=== PATIENT | male | born 1965 | race Caucasian/White ===

== ENCOUNTER 2017-11-27 14:45 | Emergency (ER) | payer BC ==
[~2017-11-27] VITALS: Ht 193 cm; Wt 115.7 kg
[~2017-11-27 14:45] MED LIST: ACET325 PO; ADVIL100 MG PO; ALPR1 PO; AMPDEX10CR PO; ARIP10 PO; ASPI81CH PO; ATEN25 PO; BUPR150ER PO; CYCL10 PO; Catapres0.1 MG PO; DESV50 PO; DULO60; DULO60 PO; ESZO3 PO; FISH1000 PO; HYDACE10B PO; HYDACE5 PO; HYDMOR2 PO; IBUP800 PO; METCAR500 PO; METH10 PO; MULVITMIND PO; Norco 5-325 Ta1 EACH PO; OXYACE5T PO; OXYC20ER PO; Prinivil10 MG PO; TRAM50 PO; VITS/SUPPS; Valium5 MG PO; ZOLP5 PO
[2017-11-27 15:41] LABS: BASOPHILS ABSOLUTE AUTO 0.03 K/mm3 (0.00-0.23); BASOPHILS PERCENT AUTO 0 % (0-2); EOSINOPHILS ABSOLUTE AUTO 0.05 K/mm3 (0.00-0.68); EOSINOPHILS PERCENT AUTO 1 % (0-6); Hematocrit 48.1 % (37.0-53.0); IMMATURE GRAN ABSOLUTE AUTO 0.04 K/mm3 (0.00-0.10); IMMATURE GRAN PERCENT AUTO 0 % (0-1); LYMPHOCYTES ABSOLUTE AUTO 2.68 K/mm3 (0.84-5.20); LYMPHOCYTES PERCENT AUTO 25 % (21-46); MONOCYTES ABSOLUTE AUTO 0.73 K/mm3 (0.16-1.47); MONOCYTES PERCENT AUTO 7 % (4-13); Mean Corpuscular HGB 31.8 pg (26.0-34.0); Mean Corpuscular HGB Conc 35.3 g/dL (31.5-36.5); Mean Corpuscular Volume 90 fL (80-100); Mean Platelet Volume 10.1 fL (9.1-12.4); NEUTROPHILS ABSOLUTE AUTO 7.39 K/mm3 (1.96-9.15); NEUTROPHILS PERCENT AUTO 68 % (41-73); Platelet Count 318 K/mm3 (150-400); RDW Coefficient Variation 11.9 % (11.7-14.2); RDW Standard Deviation 38.6 fL (35.1-46.3); Red Blood Cell Count 5.35 M/mm3 (4.30-5.90); White Blood Cell Count 10.92 K/mm3 (4.00-11.30)
[2017-11-27 15:56] LABS: Alanine Aminotransfer (ALT/SGP 30 U/L (12-78); Albumin/Globulin Ratio 1.5 (0.8-1.8); Alk Phos 65 U/L (50-136); Anion Gap 11 mmol/L (6-16); Aspartate Aminotrans (AST/SGOT 15 U/L (12-37); Bilirubin, Total 0.7 mg/dL (0.1-1.0); Blood Urea Nitrogen 18 mg/dL (8-24); CO2, Blood 22 mmol/L (21-32); Calcium, Blood 9.8 mg/dL (8.5-10.1); Chloride, Blood 103 mmol/L (98-108); Globulin, Blood 3.3 g/dL (2.2-4.0); Glomerular Filtration Rate >60 (60-); Glucose, Blood 113 mg/dL (70-99); Potassium, Blood 4.1 mmol/L (3.5-5.5); Sodium, Blood 136 mmol/L (136-145); Total Protein, Blood 8.3 g/dL (6.4-8.2)
[2017-11-27 16:12] LABS: Influenza A Negative (NEGATIVE); Influenza B Negative (NEGATIVE)
[2017-11-27] MEDS ORDERED: LORA2 PO (16:47)
== END 2017-11-27 17:02 | disposition home or self-care (01) ==
LOC: ER 14:45
PROVIDERS: Emergency Medicine
DX: R11.2 Nausea with vomiting, unspecified (principal); G44.40 Drug-induced headache, not elsewhere classified, not intractable; T43.595A Adverse effect of other antipsychotics and neuroleptics, initial encounter; F32.9 Major depressive disorder, single episode, unspecified
CPT/HCPCS: 36415; 80053; 85025; 87804; 93005; 93010; 96361; 96374; 99283; J2060; J7030

== ENCOUNTER 2021-04-11 12:10 | Emergency (ER) | payer OTHER ==
[~2021-04-11] VITALS: Ht 193 cm; Wt 124.7 kg
[~2021-04-11 12:10] MED LIST changes: +LORA2 PO
[2021-04-11 13:08] LABS: Hematocrit 49.3 % (37.0-53.0); Hemoglobin 17.8 g/dL (13.5-17.5); Mean Corpuscular HGB 32.8 pg (26.0-34.0); Mean Corpuscular HGB Conc 36.1 g/dL (31.5-36.5); Mean Corpuscular Volume 91 fL (80-100); Mean Platelet Volume 10.5 fL (9.1-12.4); Platelet Count 350 K/mm3 (150-400); RDW Standard Deviation 42.7 fL (35.1-46.3); Red Blood Cell Count 5.42 M/mm3 (4.30-5.90); White Blood Cell Count 14.88 K/mm3 (4.00-11.30)
[2021-04-11 13:27] LABS: Alanine Aminotransfer (ALT/SGP 79 U/L (12-78); Albumin, Blood 4.3 g/dL (3.4-5.0); Albumin/Globulin Ratio 1.1 (0.8-1.8); Alk Phos 76 U/L (50-136); Anion Gap 7 mmol/L (6-16); Aspartate Aminotrans (AST/SGOT 23 U/L (12-37); Bilirubin, Total 0.5 mg/dL (0.1-1.0); Blood Urea Nitrogen 23 mg/dL (8-24); Bun/Creatinine Ratio 18.3 (12.0-20.0); CO2, Blood 22 mmol/L (21-32); Calcium, Blood 9.9 mg/dL (8.5-10.1); Chloride, Blood 109 mmol/L (98-108); Creatinine, Blood 1.26 mg/dL (0.60-1.20); Globulin, Blood 3.8 g/dL (2.2-4.0); Glomerular Filtration Rate >60 (60-); Glucose, Blood 95 mg/dL (70-99); Potassium, Blood 4.5 mmol/L (3.5-5.5); Sodium, Blood 138 mmol/L (136-145); Total Protein, Blood 8.1 g/dL (6.4-8.2)
[2021-04-11 13:32] LABS: BASOPHILS ABSOLUTE MAN 0.14 K/mm3 (0.00-0.23); BASOPHILS PERCENT MAN 1 % (0-2); EOSINOPHILS ABSOLUTE MAN 0.14 K/mm3 (0.00-0.68); EOSINOPHILS PERCENT MAN 1 % (0-6); LYMPHOCYTES ABSOLUTE MAN 5.65 K/mm3 (0.84-5.20); LYMPHOCYTES PERCENT MAN 38 % (21-46); MONOCYTES ABSOLUTE MAN 1.19 K/mm3 (0.16-1.47); MONOCYTES PERCENT MAN 8 % (4-13); NEUTROPHILS ABSOLUTE MAN 7.73 K/mm3 (1.96-9.15); SEG NEUTROPHILS PERCENT MAN 52 % (41-73); TOTAL CELLS COUNTED 100
[2021-04-11] MEDS ORDERED: ALBU90OI61 INH (14:24)
== END 2021-04-11 15:02 | disposition home or self-care (01) ==
LOC: ER 12:10
PROVIDERS: Physician Assistant
DX: R06.02 Shortness of breath (principal); Z79.899 Other long term (current) drug therapy; Z79.82 Long term (current) use of aspirin; Z88.8 Allergy status to other drugs, medicaments and biological substances
CPT/HCPCS: 36415; 71046; 80053; 85025; 99284-25

== ENCOUNTER 2021-12-16 12:01 | Emergency (ER) | payer OTHER ==
[~2021-12-16] VITALS: Ht 193 cm; Wt 129.3 kg
[~2021-12-16 12:01] MED LIST changes: +ALBU90OI61 INH
[2021-12-16] MEDS ORDERED: ROSU5 (12:38)
[2021-12-16 12:59] LABS: BASOPHILS ABSOLUTE AUTO 0.01 K/mm3 (0.00-0.23); BASOPHILS PERCENT AUTO 0 % (0-2); EOSINOPHILS ABSOLUTE AUTO 0.01 K/mm3 (0.00-0.68); EOSINOPHILS PERCENT AUTO 0 % (0-6); Hematocrit 45.1 % (37.0-53.0); Hemoglobin 16.3 g/dL (13.5-17.5); IMMATURE GRAN ABSOLUTE AUTO 0.01 K/mm3 (0.00-0.10); IMMATURE GRAN PERCENT AUTO 0 % (0-1); LYMPHOCYTES ABSOLUTE AUTO 2.76 K/mm3 (0.84-5.20); LYMPHOCYTES PERCENT AUTO 34 % (21-46); MONOCYTES ABSOLUTE AUTO 0.57 K/mm3 (0.16-1.47); MONOCYTES PERCENT AUTO 7 % (4-13); Mean Corpuscular HGB Conc 36.1 g/dL (31.5-36.5); Mean Corpuscular Volume 88 fL (80-100); Mean Platelet Volume 10.5 fL (9.1-12.4); NEUTROPHILS ABSOLUTE AUTO 4.69 K/mm3 (1.96-9.15); NEUTROPHILS PERCENT AUTO 58 % (41-73); Platelet Count 270 K/mm3 (150-400); RDW Coefficient Variation 12.4 % (11.7-14.2); RDW Standard Deviation 40.7 fL (35.1-46.3); White Blood Cell Count 8.05 K/mm3 (4.00-11.30)
[2021-12-16 13:25] LABS: Alanine Aminotransfer (ALT/SGP 30 U/L (12-78); Albumin, Blood 3.4 g/dL (3.4-5.0); Albumin/Globulin Ratio 0.7 (0.8-1.8); Alk Phos 69 U/L (50-136); Anion Gap 11 mmol/L (6-16); Aspartate Aminotrans (AST/SGOT 28 U/L (12-37); Bilirubin, Total 0.5 mg/dL (0.1-1.0); Blood Urea Nitrogen 14 mg/dL (8-24); Bun/Creatinine Ratio 15.1 (12.0-20.0); CO2, Blood 22 mmol/L (21-32); Calcium, Blood 8.8 mg/dL (8.5-10.1); Chloride, Blood 104 mmol/L (98-108); Creatinine, Blood 0.93 mg/dL (0.60-1.20); Globulin, Blood 4.6 g/dL (2.2-4.0); Glomerular Filtration Rate >60 (60-); Glucose, Blood 125 mg/dL (70-99); Potassium, Blood 3.5 mmol/L (3.5-5.5); Sodium, Blood 137 mmol/L (136-145)
[2021-12-16] MEDS ORDERED: ONDA4ODT MM (15:13)
[2021-12-16] MEDS ORDERED: BENZ100A PO (15:13)
== END 2021-12-16 15:45 | disposition home or self-care (01) ==
LOC: ER 12:01
PROVIDERS: Physician Assistant
DX: U07.1 COVID-19 (principal); J12.82 Pneumonia due to coronavirus disease 2019
CPT/HCPCS: 36415; 71045; 80053; 83690; 84145; 84484; 85025; 93005; 93010; 96374; 96375; 96376; 99284-25; J1885; J2405; M0247

== ENCOUNTER 2021-12-26 08:15 | Emergency (ER) | payer OTHER ==
[~2021-12-26] VITALS: Ht 188 cm; Wt 129.3 kg
[~2021-12-26 08:15] MED LIST changes: +BENZ100A PO; +ONDA4ODT MM; +ROSU5
[2021-12-26 08:56] LABS: BASOPHILS ABSOLUTE AUTO 0.03 K/mm3 (0.00-0.23); BASOPHILS PERCENT AUTO 0 % (0-2); EOSINOPHILS ABSOLUTE AUTO 0.11 K/mm3 (0.00-0.68); EOSINOPHILS PERCENT AUTO 1 % (0-6); Hematocrit 40.6 % (37.0-53.0); Hemoglobin 14.5 g/dL (13.5-17.5); IMMATURE GRAN ABSOLUTE AUTO 0.06 K/mm3 (0.00-0.10); IMMATURE GRAN PERCENT AUTO 1 % (0-1); LYMPHOCYTES ABSOLUTE AUTO 3.08 K/mm3 (0.84-5.20); LYMPHOCYTES PERCENT AUTO 28 % (21-46); MONOCYTES ABSOLUTE AUTO 0.75 K/mm3 (0.16-1.47); MONOCYTES PERCENT AUTO 7 % (4-13); Mean Corpuscular HGB 31.7 pg (26.0-34.0); Mean Corpuscular HGB Conc 35.7 g/dL (31.5-36.5); Mean Corpuscular Volume 89 fL (80-100); Mean Platelet Volume 9.8 fL (9.1-12.4); NEUTROPHILS ABSOLUTE AUTO 7.14 K/mm3 (1.96-9.15); NEUTROPHILS PERCENT AUTO 64 % (41-73); Platelet Count 350 K/mm3 (150-400); RDW Coefficient Variation 12.2 % (11.7-14.2); RDW Standard Deviation 39.3 fL (35.1-46.3); Red Blood Cell Count 4.57 M/mm3 (4.30-5.90); White Blood Cell Count 11.17 K/mm3 (4.00-11.30)
[2021-12-26 09:22] LABS: Alanine Aminotransfer (ALT/SGP 33 U/L (12-78); Albumin, Blood 3.3 g/dL (3.4-5.0); Albumin/Globulin Ratio 0.9 (0.8-1.8); Alk Phos 66 U/L (50-136); Anion Gap 7 mmol/L (6-16); Aspartate Aminotrans (AST/SGOT 19 U/L (12-37); Bilirubin, Total 0.6 mg/dL (0.1-1.0); Blood Urea Nitrogen 20 mg/dL (8-24); Bun/Creatinine Ratio 21.9 (12.0-20.0); CO2, Blood 26 mmol/L (21-32); Calcium, Blood 8.8 mg/dL (8.5-10.1); Chloride, Blood 110 mmol/L (98-108); Creatinine, Blood 0.91 mg/dL (0.60-1.20); Globulin, Blood 3.5 g/dL (2.2-4.0); Glomerular Filtration Rate >60 (60-); Glucose, Blood 117 mg/dL (70-99); Potassium, Blood 3.9 mmol/L (3.5-5.5); Sodium, Blood 143 mmol/L (136-145); Total Protein, Blood 6.8 g/dL (6.4-8.2)
== END 2021-12-26 12:22 | disposition home or self-care (01) ==
LOC: ER 08:15
PROVIDERS: Physician Assistant
DX: K21.9 Gastro-esophageal reflux disease without esophagitis (principal); Z88.8 Allergy status to other drugs, medicaments and biological substances; Z79.899 Other long term (current) drug therapy; Z79.82 Long term (current) use of aspirin
CPT/HCPCS: 36415; 71045; 80053; 84484; 85025; 85379; 93005; 93010; 96374; 96375; 99285-25; A9270; J1885; J2405

== ENCOUNTER 2022-05-04 12:11 | Emergency (ER) | payer OTHER ==
[~2022-05-04] VITALS: Ht 193 cm; Wt 127.0 kg
[2022-05-04 13:44] LABS: BASOPHILS ABSOLUTE AUTO 0.04 K/mm3 (0.00-0.23); BASOPHILS PERCENT AUTO 0 % (0-2); EOSINOPHILS ABSOLUTE AUTO 0.44 K/mm3 (0.00-0.68); EOSINOPHILS PERCENT AUTO 4 % (0-6); Hematocrit 47.3 % (37.0-53.0); Hemoglobin 16.4 g/dL (13.5-17.5); Mean Corpuscular HGB Conc 34.7 g/dL (31.5-36.5); Mean Corpuscular Volume 92 fL (80-100); Mean Platelet Volume 10.5 fL (9.1-12.4); Platelet Count 373 K/mm3 (150-400); RDW Coefficient Variation 13.2 % (11.7-14.2); RDW Standard Deviation 44.5 fL (35.1-46.3); Red Blood Cell Count 5.13 M/mm3 (4.30-5.90); White Blood Cell Count 12.41 K/mm3 (4.00-11.30)
[2022-05-04 14:05] LABS: IMMATURE GRAN ABSOLUTE AUTO 0.03 K/mm3 (0.00-0.10); IMMATURE GRAN PERCENT AUTO 0 % (0-1); LYMPHOCYTES ABSOLUTE AUTO 5.07 K/mm3 (0.84-5.20); LYMPHOCYTES PERCENT AUTO 41 % (21-46); MONOCYTES ABSOLUTE AUTO 0.96 K/mm3 (0.16-1.47); MONOCYTES PERCENT AUTO 8 % (4-13); NEUTROPHILS ABSOLUTE AUTO 5.87 K/mm3 (1.96-9.15); NEUTROPHILS PERCENT AUTO 47 % (41-73)
[2022-05-04 14:15] LABS: Bilirubin, Total 0.6 mg/dL (0.1-1.0); Bun/Creatinine Ratio 23.9 (12.0-20.0); Calcium, Blood 9.5 mg/dL (8.5-10.1); Creatinine, Blood 1.34 mg/dL (0.60-1.20); Potassium, Blood 4.2 mmol/L (3.5-5.5)
[2022-05-04 17:40] LABS: Source, Urine Clean Catch
[2022-05-04 17:49] LABS: Appearance, Urine Clear (Clear); Bilirubin, Urine Neg (Neg); Blood, Urine Neg (Neg); Color, Urine Yellow (P-Yellow); Glucose Qualitative, Urine Neg (Neg); Ketones, Urine Neg (Neg); Leukocyte Esterase, Urine Neg (Neg); Nitrite, Urine Neg (Neg); Protein, Urine 1+ (Neg); Specific Gravity, Urine 1.025 (1.003-1.022); Urobilinogen, Urine NORM (Normal)
[2022-05-04 19:57] LABS: U Amphetamine Screen DETECTED; U Barbituate Screen Not Detected; U Benzodiazapine Screen DETECTED; U Buprenorphine Screen Not Detected; U Cannabinoids Screen Not Detected; U Cocaine Screen Not Detected; U Methadone Screen Not Detected; U Methamphetamine Screen Not Detected; U Opiates Screen Not Detected; U Oxycodone Screen Not Detected; U Phencyclidine Screen Not Detected; U Propoxyphene Screen Not Detected
== END 2022-05-04 20:31 | disposition home or self-care (01) ==
LOC: ER 12:11
PROVIDERS: Emergency Medicine; Physician Assistant
DX: R47.89 Other speech disturbances (principal); F41.9 Anxiety disorder, unspecified; N28.9 Disorder of kidney and ureter, unspecified; Z88.8 Allergy status to other drugs, medicaments and biological substances; Z79.899 Other long term (current) drug therapy
CPT/HCPCS: 36415; 70450; 71046; 80053; 85025; 93005; 93010; 96374; 99285-25; G0480; J1200

== ENCOUNTER 2022-08-02 14:56 | Emergency (ER) | payer OTHER ==
[~2022-08-02] VITALS: Ht 193 cm; Wt 127.0 kg
[2022-08-02 15:29] LABS: Hematocrit 47.9 % (37.0-53.0); Hemoglobin 16.2 g/dL (13.5-17.5); Mean Corpuscular HGB 30.5 pg (26.0-34.0); Mean Corpuscular HGB Conc 33.8 g/dL (31.5-36.5); Mean Corpuscular Volume 90 fL (80-100); Mean Platelet Volume 10.1 fL (9.1-12.4); Platelet Count 330 K/mm3 (150-400); RDW Coefficient Variation 13.9 % (11.7-14.2); RDW Standard Deviation 45.8 fL (35.1-46.3); Red Blood Cell Count 5.32 M/mm3 (4.30-5.90); White Blood Cell Count 15.84 K/mm3 (4.00-11.30)
[2022-08-02 15:43] LABS: Albumin/Globulin Ratio 1.1 (0.8-1.8); Bilirubin, Total 0.5 mg/dL (0.1-1.0); Bun/Creatinine Ratio 23.1 (12.0-20.0); Calcium, Blood 9.4 mg/dL (8.5-10.1); Creatinine, Blood 1.56 mg/dL (0.60-1.20); Globulin, Blood 3.5 g/dL (2.2-4.0); Potassium, Blood 4.2 mmol/L (3.5-5.5); Total Protein, Blood 7.5 g/dL (6.4-8.2)
[2022-08-02 16:00] LABS: BASOPHILS PERCENT MAN 0 % (0-2); EOSINOPHILS ABSOLUTE MAN 0.63 K/mm3 (0.00-0.68); EOSINOPHILS PERCENT MAN 4 % (0-6); LYMPHOCYTES % ATYPICAL MANUAL 1 % (0-0); LYMPHOCYTES ABSOLUTE MAN 4.91 K/mm3 (0.84-5.20); LYMPHOCYTES PERCENT MAN 30 % (21-46); MONOCYTES PERCENT MAN 7 % (4-13); NEUTROPHILS ABSOLUTE MAN 9.18 K/mm3 (1.96-9.15); SEG NEUTROPHILS PERCENT MAN 58 % (41-73); TOTAL CELLS COUNTED 100
[2022-08-02] MEDS ORDERED: ATEN50 PO (16:30)
[2022-08-02] MEDS ORDERED: LOSARTAN POTASS25 M2 PO (16:31)
[2022-08-02] MEDS ORDERED: TRAM50 PO (16:31)
[2022-08-02] MEDS ORDERED: HYDHCL25 PO (16:31)
[2022-08-02] MEDS ORDERED: PERIDEX15 ML MM (17:02)
[2022-08-02] MEDS ORDERED: AMOCLA875 PO (17:02)
== END 2022-08-02 17:23 | disposition home or self-care (01) ==
LOC: ER 14:56
PROVIDERS: Physician Assistant
DX: L03.211 Cellulitis of face (principal); K12.1 Other forms of stomatitis; Z88.8 Allergy status to other drugs, medicaments and biological substances; Z79.899 Other long term (current) drug therapy
CPT/HCPCS: 36415; 80053; 85025; 99283

== ENCOUNTER 2022-08-29 13:22 | Emergency (ER) | payer OTHER ==
[~2022-08-29] VITALS: Ht 193 cm; Wt 127.0 kg
[~2022-08-29 13:22] MED LIST changes: +AMOCLA875 PO; +ATEN50 PO; +HYDHCL25 PO; +LOSARTAN POTASS25 M2 PO; +PERIDEX15 ML MM
[2022-08-29] MEDS ORDERED: PEPCID40 MG PO (18:21)
[2022-08-29] MEDS ORDERED: PRED20 PO (18:21)
== END 2022-08-29 19:12 | disposition home or self-care (01) ==
LOC: ER 13:22
DX: T78.3XXA Angioneurotic edema, initial encounter (principal); I10 Essential (primary) hypertension; F41.9 Anxiety disorder, unspecified; F32.A Depression, unspecified; Z88.8 Allergy status to other drugs, medicaments and biological substances; Z79.899 Other long term (current) drug therapy; Z79.82 Long term (current) use of aspirin
CPT/HCPCS: J1200; J2930

== ENCOUNTER 2022-08-30 12:31 | Inpatient (IN) | payer OTHER ==
[~2022-08-30] VITALS: Ht 193 cm; Wt 130.0 kg
[~2022-08-30 12:31] MED LIST changes: -AMPDEX10CR PO; -ASPI81CH PO; +Adderall Xr 2020 MG PO; +Aspir 8181 MG PO; +DULO30 PO; -DULO60; -LOSARTAN POTASS25 M2 PO; +PEPCID40 MG PO; +PRED20 PO; -ROSU5; +ROSU5 PO
[2022-08-30 13:58] LABS: Hematocrit 46.5 % (37.0-53.0); Hemoglobin 15.4 g/dL (13.5-17.5); Mean Corpuscular HGB 29.4 pg (26.0-34.0); Mean Corpuscular HGB Conc 33.1 g/dL (31.5-36.5); Mean Corpuscular Volume 89 fL (80-100); Mean Platelet Volume 9.9 fL (9.1-12.4); Platelet Count 370 K/mm3 (150-400); RDW Coefficient Variation 14.6 % (11.7-14.2); RDW Standard Deviation 47.4 fL (35.1-46.3); Red Blood Cell Count 5.24 M/mm3 (4.30-5.90); White Blood Cell Count 19.66 K/mm3 (4.00-11.30)
[2022-08-30 14:12] LABS: Albumin/Globulin Ratio 1.1 (0.8-1.8); Bilirubin, Total 0.5 mg/dL (0.1-1.0); Bun/Creatinine Ratio 30.6 (12.0-20.0); C-REACTIVE PROTEIN, EXT RANGE 2.97 mg/dL (0.000-0.300); Calcium, Blood 8.7 mg/dL (8.5-10.1); Creatinine, Blood 1.44 mg/dL (0.60-1.20); Globulin, Blood 3.5 g/dL (2.2-4.0); Potassium, Blood 4.6 mmol/L (3.5-5.5); Total Protein, Blood 7.5 g/dL (6.4-8.2)
[2022-08-30 14:49] LABS: BAND PERCENT MAN 1 % (0-8); BASOPHILS ABSOLUTE MAN 0.39 K/mm3 (0.00-0.23); BASOPHILS PERCENT MAN 2 % (0-2); EOSINOPHILS PERCENT MAN 0 % (0-6); LYMPHOCYTES % ATYPICAL MANUAL 2 % (0-0); LYMPHOCYTES ABSOLUTE MAN 4.12 K/mm3 (0.84-5.20); LYMPHOCYTES PERCENT MAN 19 % (21-46); MONOCYTES ABSOLUTE MAN 1.57 K/mm3 (0.16-1.47); MONOCYTES PERCENT MAN 8 % (4-13); NEUTROPHILS ABSOLUTE MAN 13.56 K/mm3 (1.96-9.15); SEG NEUTROPHILS PERCENT MAN 68 % (41-73); TOTAL CELLS COUNTED 100
[2022-08-30 14:59] LABS: Source, Urine Clean Catch
[2022-08-30 15:01] LABS: Appearance, Urine Clear (Clear); Bilirubin, Urine Neg (Neg); Blood, Urine Neg (Neg); Color, Urine Amber (P-Yellow); Glucose Qualitative, Urine Neg (Neg); Ketones, Urine 2+ (Neg); Leukocyte Esterase, Urine Neg (Neg); Nitrite, Urine Neg (Neg); Protein, Urine 1+ (Neg); Specific Gravity, Urine 1.025 (1.003-1.022); Urobilinogen, Urine NORM (Normal)
[2022-08-30 21:14] LABS: U Amphetamine Screen DETECTED; U Barbituate Screen Not Detected; U Benzodiazapine Screen Not Detected; U Buprenorphine Screen Not Detected; U Cannabinoids Screen Not Detected; U Cocaine Screen Not Detected; U Methadone Screen Not Detected; U Methamphetamine Screen Not Detected; U Opiates Screen DETECTED; U Oxycodone Screen Not Detected; U Phencyclidine Screen Not Detected; U Propoxyphene Screen Not Detected
--- NOTE | 2022-08-31 00:16 | NUR ---
PT ARRIVED TO UNIT AT 2350 VIA BED TRANSFER FROM ED. UPPER BODY AND FACE VERY FLUSHED AND RAPID MOVEMENT, MOSTLY IN LEs STATING UNABLE TO HOLD THEM STILL DUE TO EXISTING RESTLESS LEGS. THIS IS THE WORST IT HAS EVER BEEN. HE DID RECEIVE A DOSE OF STEROIDS IN THE ED LAST NIGHT WHEN HE WAS HERE. REPORTS OVERSTIMULATION TO LIGHT AND SOUND; WHEN LEFT IN DARK, QUIET ROOM HE IS NOTED TO HAVE DECREASED MOVEMENTS, THOUGH DO NOT CEASE ALTOGETHER. FEELS LIKE HIS NERVES ARE OVERSTIMULATED WHEN LIGHTS ARE BRIGHT.
[2022-08-31 04:39] LABS: BASOPHILS ABSOLUTE AUTO 0.04 K/mm3 (0.00-0.23); BASOPHILS PERCENT AUTO 0 % (0-2); EOSINOPHILS ABSOLUTE AUTO 0.27 K/mm3 (0.00-0.68); EOSINOPHILS PERCENT AUTO 2 % (0-6); Hematocrit 43.3 % (37.0-53.0); IMMATURE GRAN ABSOLUTE AUTO 0.05 K/mm3 (0.00-0.10); IMMATURE GRAN PERCENT AUTO 0 % (0-1); LYMPHOCYTES ABSOLUTE AUTO 4.92 K/mm3 (0.84-5.20); LYMPHOCYTES PERCENT AUTO 32 % (21-46); MONOCYTES ABSOLUTE AUTO 1.31 K/mm3 (0.16-1.47); MONOCYTES PERCENT AUTO 9 % (4-13); Mean Corpuscular HGB 28.9 pg (26.0-34.0); Mean Corpuscular HGB Conc 32.3 g/dL (31.5-36.5); Mean Corpuscular Volume 89 fL (80-100); Mean Platelet Volume 10.5 fL (9.1-12.4); NEUTROPHILS ABSOLUTE AUTO 8.77 K/mm3 (1.96-9.15); NEUTROPHILS PERCENT AUTO 57 % (41-73); Platelet Count 240 K/mm3 (150-400); RDW Coefficient Variation 14.5 % (11.7-14.2); RDW Standard Deviation 47.3 fL (35.1-46.3); Red Blood Cell Count 4.85 M/mm3 (4.30-5.90); White Blood Cell Count 15.36 K/mm3 (4.00-11.30)
[2022-08-31 05:01] LABS: Albumin, Blood 3.4 g/dL (3.4-5.0); Albumin/Globulin Ratio 1.1 (0.8-1.8); Bilirubin, Total 0.5 mg/dL (0.1-1.0); Bun/Creatinine Ratio 32.4 (12.0-20.0); Calcium, Blood 8.1 mg/dL (8.5-10.1); Creatinine, Blood 1.11 mg/dL (0.60-1.20); Magnesium, Blood 2.5 mg/dL (1.6-2.4); Potassium, Blood 3.8 mmol/L (3.5-5.5); Total Protein, Blood 6.4 g/dL (6.4-8.2)
--- NOTE | 2022-08-31 08:47 | NUR ---
COPRA SAMPLER SUMMARY: A&Ox4. PLEASANT AND COOPERATIVE WITH CARE HE POSSIBLY CAN BE. BIGGEST COMPLAINT IS RESTLESS LEGS, CAUSING HIM TO CONSTANTLY BE KICKING LEGS, SOMETIMES EVEN FLAILING HIS LEGS. ON-CALL WAS CALLED SEVERAL TIMES FOR DIFFERENT INTERVETIONS INCLUDING HYDOXYZINE, MIRIPEX, GABAPENTIN, ATIVAN AND NORCO, ALL WITHOUT RELIEF. OFTEN, WHEN CHECKING ON HIM, HE WAS SNORING AND ASLEEP BUT LEGS WERE STILL KICKING, OR HE WOULD BE RESTING AND HAVE EPISODES OF ENTIRE BODY JUMPING OR JOLTING, STILL SNORING. SEEMED TO DO BETTER WHEN LIGHTS WERE OFF, ROOM WAS COOL AND QUIET; EPISODES SEEM TO BE WORSE WHEN LIGHTS ARE ON OR EXCESSIVE NOISE, THOUGH HYPERREFLEXIVE. REPORTS HAVING ISSUES WITH RLS BEFORE, BUT THIS IS THE WORST IT HAS EVER BEEN. C/O SKIN FLUSHING AND FEELING HOT AND BURNING THOUGH HE HAS A SUNBURN. GIVEN ICE BACK WHICH SEEMED TO HELP WITH THIS, BUT WAS STILL NOTED TO BE RUBBING HIS FACE A LOT. TAKES A B VITAMIN SUPPLEMENTS BUT ENSURES TO ONLY BUY THE FLUSH-FREE NIACIN. REPORTS FEELING HOPELESS THIS HAS BEEN GOING ON FOR SEVERAL MONTHS, SINCE HENRY COVID IN NOVEMBER. 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 DENIES ANY SUICIDAL IDEATION, THOUGH ENDORSES HAVING DEPRESSION RELATED TO FEELING LIKE THIS CONDITION HAS TAKEN EVERYTHING FROM HIM. REPORT TO ONCDEL FLORES.
[2022-08-31] MEDS ORDERED: TESTOSTERONE75 G1 TOP (13:43)
[2022-08-31] MEDS ORDERED: IBU800 M1 PO (13:45)
[2022-08-31] MEDS ORDERED: LOSARTAN POTASS25 M2 PO (13:47)
[2022-08-31] MEDS ORDERED: TETRABENAZINE12.5 MG PO (13:59)
--- NOTE | 2022-08-31 15:46 | NUR ---
UPon receiving a referral for spiritual care, I visit pt. Pt talks about the assisted effects of Covid, how it has impacted him emotionally and how his medical condition has effected his 18 y/o dtr who lives with him. Pt shows signs some of emotional/spiritual distress. Pt is explains that he is agnostic, that he has had serious mental issues (5 wks in a psych facility), and that he is emotionally exhuasted. He states that he is much more solid then he was back then (it has been 13 yrs since the time in the psych facility) but this last year has been extremely challenging for him. I normalize pt's experience, reinforce helpful attitudes and practices and provide therapeutic listening and a calming presence. Pt resp[onds well and shows signs of cartharsis. I will continue to remain available to pt and family.
--- NOTE | 2022-08-31 16:23 | NUR ---
DAYSHIFT SUMMARY On arrival of shift patient resting in bed, observed patient restless, bilateral LE jerking up/down motion. Upper body jerking back/forth. Patient snoring/gasping, arouses to voice. Face/body flushed, small brown-purple spots noted bottom lip & around right nipple. Patient has difficulty recalling dates r/t symptoms. 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 Patients ex- at bedside, and reported these symptoms have been ongoing since patient recovered from COVID infection last . Patient reports PCP tried meds for restless leg syndrome, but meds ineffective. 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 Plan is to keep patient over night and start Xenazine tomorrow AM. Per MD held morning meds, only gave Cymbalta. Medicated for pain, pt reports full body pain/aches. Patient reports pain & feeling exhausted from the constant restlessness. Vitals stable will continue plan of care.
--- NOTE | 2022-09-01 05:17 | NUR ---
Shift Summary Pt restless, constantly kicking legs, moving feet hand and arms. Chief complaint is restless legs which have not responded to treatment. Plan to try xenazine which is in [facility], awaiting for delivery of this medication which should be today. Held all meds, day shift nurse reported Dr. Garcia saying to hold all medications except Cymbalta to try and rule out possible factors of restless legs. PT did not sleep much, requested PRN HyDROXyzine for anxiety. C/O lower back pain early in the shift and requested norco, was asleep on reassessment. AOx4, VSS, no acute events, pleasant and cooperative with care.
--- NOTE | 2022-09-01 10:53 | NUR ---
UPDATE: STILL AWAITING THE NEW MEDICATION FOR PT'S RESTLESS LEG. PT STATED HE DOES NOT NEED ANYTHING AT THIS TIME. WILL CONTINUE TO MONITOR AND TO LOOK OUT FOR MEDICATION.
--- NOTE | 2022-09-01 12:44 | NUR ---
UPDATE MEDICATION FOR RESTLESS LEG CAME IN AND WAS GIVEN TO PT. WHEN I WALKED IN, THE PT STATED HIS FACE FEELS HOT AND HAS PAIN DUE TO HIS ANGIOEDEMA. ICE PACK WAS PROVIDED TO PT WELL PRN GANGA. VITAL SIGNS STABLE. WILL CONTINUE TO ASSESS.
--- NOTE | 2022-09-01 17:03 | NUR ---
POST COVID SYMPTOMS: WHEN I ENTERED THE PT'S ROOM DUE TO THE CALL LIGHT, HE STATED THAT HIS LIPS WERE "BURNING AND ON FIRE." I PROVIDED HIM WITH A COOL RAG AND ASSESSED HIS OXYGEN SATURATION. HE SAID THIS HAS BEEN HAPPENING FOR SEVERAL WEEKS DUE TO POST COVID. HE ALSO SAID THAT THE HEALTH RECORDS TECHNOLOGY TEACHER NURSE GAVE HIM A PILL THAT HELPED WITH THOSE SYMPTOMS DURING THE NIGHT. WHEN I LOOKED INTO IT, HE WAS GIVEN HIS ANXIETY MEDICATION. I ADMINISTERED HIS ANXIETY MEDICATION AND WILL REASSESS HIS SYMPTOMS.
--- NOTE | 2022-09-01 17:36 | NUR ---
PT STATED THE ANXIETY MEDICATION WORKED FOR HIS BURNING LIPS. REQUESTED A SNACK AND IS EATING W/O PAIN OR BURNING. WILL CONTINUE TO MONITOR.
--- NOTE | 2022-09-01 17:41 | NUR ---
SHIFT SUMMARY: ON ARRIVAL OF THIS SHIFT, PT WAS LYING IN BED WITH SEVERE CHOREA DUE TO WHAT HE STATES ARE "POST COVID SYMPTOMS." HE WAS PRESCRIBED XENAZINE TO HOPEFULLY HELP WITH THE SYMPTOMS BUT HAVE NOT YET APPEARED TO TAKE EFFECT. TWICE THIS SHIFT, HE CALLED ME IN HIS ROOM DUE TO SEVERE BURNING AND PAIN IN HIS LIPS. WITH THE FIRST ONSET, I PROVIDED HIM WITH A COOL RAG AND HIS PRN PAIN MEDICATION. WITH THE SECOND ONSET, I PROVIDED HIM WITH A COOL RAG AND HIS ANTI ANXIETY MEDICATION. HE APPEARED TO HAVE LESS PAIN AND BURNING WITH EACH INTERVENTION. HE HAS NON STOP SHAKING OF HIS UPPER AND LOWER EXTREMITIES. PATIENT ALERT AND OREINTED X4. VITAL SIGNS REMAIN STABLE. WILL CONTINUE TO MONITOR UNTIL END OF SHIFT.
--- NOTE | 2022-09-02 06:11 | NUR ---
Shift Summary Pt started on new med Tetrabenzine for restless legs, per day report can take 1-2 weeks to take effect. Pt C/O swelling and burning in the face which started before the new med, Dr. liu. Given PRN [place] for lower back pain and face pain. Was able to get some sleep though still feeling restless and displaying constant leg movement while awake. VSS, no acute events, pleasant and cooperative with care.
--- NOTE | 2022-09-02 10:14 | NUR ---
DISCHARGE MEDS, INSTRUCTIONS, AND FOLLOWUP VISITS DISCUSSED WITH PATIENT. PT VOICED COMPLETE UNDERSTANDING AND HAS NO QUESTIONS AT THIS TIME. IV REMOVED WITH CATHETER TIP INTACT. PT ATTEMPTING TO CONTACT SOMEONE FOR RIDE HOME. WILL CONTINUE TO MONITOR. CALL LIGHT WITHIN REACH.
--- NOTE | 2022-09-02 17:23 | NUR ---
SHIFT SUMMARY NO ACUTE CHANGES DURING SHIFT. PT ALERT AND ORIENTED, CALLS APPROPRIATELY. PT SET TO D/C BUT PHARMACY UNABLE TO HAVE D/C MEDICATION READY UNTIL SUNDAY AT THE EARLIEST SO PT HAS TO STAY UNTIL MEDICATION READY. PT INDEPENDENT IN ROOM. PRN PAIN AND ANXIETY MEDICATION ADMINISTERED DURING SHIFT. WILL CONTINUE TO MONITOR. CALL LIGHT WITHIN REACH.
--- NOTE | 2022-09-03 05:15 | NUR ---
SUMMARY: PATIENT DID WELL OVERNIGHT. VSS. NO ACUTE EVENTS. PATIENT REQUESTED PAIN AND ANXIENTY MEDS ONCE. PROVIDED PATIENT ICE FOR MOUTH SORES. PATIENT RESTLESS IN BED FOR MOST OF NIGHT. PATIENT WAS ABLE TO SLEEP BETTER AFTER PRN MEDS GIVEN. PATIENT AWAITING DC AFTER HOME MEDS ARE AVAILABLE.
--- NOTE | 2022-09-03 17:11 | NUR ---
SHIFT SUMMARY NO ACUTE CHANGES DURING SHIFT. PT ALERT AND ORIENTED, CALLS APPROPRIATELY. PT RECEIVED PAIN AND ANXIETY MEDICATIONS X 2 TODAY. PT STILL C/O SYMPTOMS RELATED TO ANGIOEDEMA, PT STARTED ON PO STEROIDS. WILL CONTINUE TO MONITOR. CALL LIGHT WITHIN REACH.
--- NOTE | 2022-09-04 05:30 | NUR ---
SUMMARY: PATIENT DID WELL OVERNIGHT. VSS. NO ACUTE EVENTS. PATIENT REQUESTED PAIN AND ANXIENTY MEDS TWICE. PROVIDED PATIENT ICE FOR MOUTH SORES. PATIENT RESTLESS WHILE AWAKE. SEEMED TO SLEEP WITH FEWER JERKY MOVEMENTS TONIGHT COMPARED TO LAST NIGHT. PATIENT AWAITING DC AFTER HOME MEDS ARE AVAILABLE.
--- NOTE | 2022-09-04 17:18 | NUR ---
SHIFT SUMMARY; PAINT PREPARER HARLEY WORKING ON GETTING DAVID HOME MEDICATION THROUGH A PHARMACY AND AVAILABLE FOR CECILIA TO RIVER EXPEDITION GUIDE [place]. SHE TOLD THIS RN THAT IT WOULD BE AT LEAST 1 TO 3 DAYS. PATIENT REMAINS IN BED DURING DAY ONLY AMBULATING TO AND FROM BATHROOM WITHOUT ASSIST. HE USES CALL LIGHT APPROPRIATLY AND IS ABLE TO MAKE HIS NEEDS KNOWN. HIS VITAL SIGNS ARE ALL WNL. HIS LUNGS HAVE WHEEZES NOTED THAT CLEAR WITH COUGH IN THE UPPER LOBES AND ARE DIM IN THE BASES. PATIENT ENCOURAGED TO COUGH AND DEEP BREATH. PLAN IS TO [place] HOME AFTER OBTAINING MEDICATION CONFIRMATION FROM LOCAL PHARMACY
--- NOTE | 2022-09-05 04:22 | NUR ---
SUMMARY: PATIENT DID WELL OVERNIGHT. VSS. NO ACUTE EVENTS. PRN MEDS GIVEN NEEDED. RECIEVED ORDER FOR MAGIC MOUTH WASH FOR PATIENT SORES. PATIENT OCCASIONALLY RESTLESS WHILE AWAKE. PATIENT WAS ABLE TO SLEEP WITH MINIMAL TREMORS. PATIENT AWAITING DC AFTER HOME MEDS ARE AVAILABLE. NUCLEAR UNIT OPERATOR AND UNION STEWARD ASSISTING IN ACQUIRING MEDS.
[2022-09-05 08:10] LABS: COMPLEMENT C3, SERUM 188 mg/dL (82-167); COMPLEMENT C4, SERUM 23 mg/dL (12-38)
[2022-09-05 19:09] LABS: ANA DIRECT Negative (Negative); ANTI-DNA (DS) AB QN <1 IU/mL (0-9); RNP ANTIBODIES <0.2 AI (0.0-0.9); SJOGREN'S ANTI-SS-A <0.2 AI (0.0-0.9); SJOGREN'S ANTI-SS-B <0.2 AI (0.0-0.9); SMITH ANTIBODIES <0.2 AI (0.0-0.9)
== END 2022-09-05 11:39 | disposition left against medical advice (07) | DRG 916 ==
LOC: ER 12:31 → MEDS 12:32 → ENPENDDIS 09-02 09:44 → MEDS 09-05 11:39
PROVIDERS: Internal Medicine; Physician Assistant; Student in an Organized Health Care Education/Training Program; ADMIT Student in an Organized Health Care Education/Training Program
DX: T78.3XXA Angioneurotic edema, initial encounter (principal); G93.40 Encephalopathy, unspecified; F15.20 Other stimulant dependence, uncomplicated; J98.11 Atelectasis; U09.9 Post COVID-19 condition, unspecified; F32.A Depression, unspecified; F41.9 Anxiety disorder, unspecified; I10 Essential (primary) hypertension; I34.1 Nonrheumatic mitral (valve) prolapse; M54.50 Low back pain, unspecified; G25.5 Other chorea; G89.4 Chronic pain syndrome; E78.5 Hyperlipidemia, unspecified; K13.0 Diseases of lips; Z96.651 Presence of right artificial knee joint; Z98.1 Arthrodesis status; Z98.890 Other specified postprocedural states; Z90.49 Acquired absence of other specified parts of digestive tract; Z88.8 Allergy status to other drugs, medicaments and biological substances; Z79.899 Other long term (current) drug therapy; Z79.891 Long term (current) use of opiate analgesic; Z79.82 Long term (current) use of aspirin
CPT/HCPCS: 36415; 70450; 71045; 80053; 83605; 83735; 84145; 84484; 85025; 85651; 86140; 86160; 86225; 86235; 87040; 93005; 93010; 94760; 94762; 96365; 96372; 96375; 99285-25; A9270; G0378; G0480; J0456; J0696; J1644; J2060; J7030; J7050; J7512

== ENCOUNTER 2022-09-29 09:45 | Emergency (ER) | payer OTHER ==
[~2022-09-29] VITALS: Ht 193 cm; Wt 124.7 kg
[~2022-09-29 09:45] MED LIST changes: +IBU800 M1 PO; +LOSARTAN POTASS25 M2 PO; +TESTOSTERONE75 G1 TOP; +TETRABENAZINE12.5 MG PO
[2022-09-29 10:49] LABS: BASOPHILS ABSOLUTE AUTO 0.04 K/mm3 (0.00-0.23); BASOPHILS PERCENT AUTO 0 % (0-2); EOSINOPHILS ABSOLUTE AUTO 0.31 K/mm3 (0.00-0.68); EOSINOPHILS PERCENT AUTO 3 % (0-6); Hematocrit 47.4 % (37.0-53.0); Hemoglobin 15.9 g/dL (13.5-17.5); Mean Corpuscular HGB 29.1 pg (26.0-34.0); Mean Corpuscular HGB Conc 33.5 g/dL (31.5-36.5); Mean Corpuscular Volume 87 fL (80-100); Mean Platelet Volume 9.8 fL (9.1-12.4); Platelet Count 318 K/mm3 (150-400); RDW Coefficient Variation 15.5 % (11.7-14.2); RDW Standard Deviation 48.1 fL (35.1-46.3); Red Blood Cell Count 5.46 M/mm3 (4.30-5.90); White Blood Cell Count 12.03 K/mm3 (4.00-11.30)
[2022-09-29 10:52] LABS: IMMATURE GRAN ABSOLUTE AUTO 0.04 K/mm3 (0.00-0.10); IMMATURE GRAN PERCENT AUTO 0 % (0-1); LYMPHOCYTES ABSOLUTE AUTO 4.24 K/mm3 (0.84-5.20); LYMPHOCYTES PERCENT AUTO 35 % (21-46); MONOCYTES ABSOLUTE AUTO 1.07 K/mm3 (0.16-1.47); MONOCYTES PERCENT AUTO 9 % (4-13); NEUTROPHILS ABSOLUTE AUTO 6.33 K/mm3 (1.96-9.15); NEUTROPHILS PERCENT AUTO 53 % (41-73)
[2022-09-29 11:09] LABS: Albumin, Blood 3.6 g/dL (3.4-5.0); Bilirubin, Total 0.5 mg/dL (0.1-1.0); Bun/Creatinine Ratio 25.1 (12.0-20.0); Calcium, Blood 8.8 mg/dL (8.5-10.1); Creatinine, Blood 0.92 mg/dL (0.60-1.20); Globulin, Blood 3.5 g/dL (2.2-4.0); Potassium, Blood 3.9 mmol/L (3.5-5.5); Total Protein, Blood 7.1 g/dL (6.4-8.2)
[2022-09-29] MEDS ORDERED: ONDA4ODT (15:08)
[2022-09-29] MEDS ORDERED: TESTOSTERONE75 G1 TD (15:08)
[2022-09-29] MEDS ORDERED: ROSUVASTATIN CAL5 MG PO (15:10)
[2022-09-29] MEDS ORDERED: PRED20 PO (16:47)
[2022-09-29] MEDS ORDERED: MUPIROCIN1 G1 TOP (20:15)
== END 2022-09-29 16:54 | disposition home or self-care (01) ==
LOC: ER 09:45
PROVIDERS: Physician Assistant
DX: L01.00 Impetigo, unspecified (principal); I10 Essential (primary) hypertension; Z88.8 Allergy status to other drugs, medicaments and biological substances; Z79.82 Long term (current) use of aspirin; Z79.899 Other long term (current) drug therapy
CPT/HCPCS: 36415; 80053; 85025; J1200; J2930

== ENCOUNTER 2023-08-14 22:41 | Emergency (ER) | payer BC ==
[~2023-08-14] VITALS: Ht 193 cm; Wt 145.2 kg
[~2023-08-14 22:41] MED LIST changes: +MUPIROCIN1 G1 TOP; +NALOXONE HCL4 MG NS; +ONDA4ODT; +ROSUVASTATIN CAL5 MG PO; +TESTOSTERONE75 G1 TD
[2023-08-14 23:28] LABS: BASOPHILS ABSOLUTE AUTO 0.04 K/mm3 (0.00-0.23); BASOPHILS PERCENT AUTO 1 % (0-2); EOSINOPHILS ABSOLUTE AUTO 0.26 K/mm3 (0.00-0.68); EOSINOPHILS PERCENT AUTO 3 % (0-6); Hematocrit 41.9 % (37.0-53.0); IMMATURE GRAN ABSOLUTE AUTO 0.04 K/mm3 (0.00-0.10); IMMATURE GRAN PERCENT AUTO 1 % (0-1); LYMPHOCYTES ABSOLUTE AUTO 2.29 K/mm3 (0.84-5.20); LYMPHOCYTES PERCENT AUTO 28 % (21-46); MONOCYTES ABSOLUTE AUTO 0.77 K/mm3 (0.16-1.47); MONOCYTES PERCENT AUTO 9 % (4-13); Mean Corpuscular HGB 30.5 pg (26.0-34.0); Mean Corpuscular HGB Conc 33.4 g/dL (31.5-36.5); Mean Corpuscular Volume 91 fL (80-100); Mean Platelet Volume 10.1 fL (9.1-12.4); NEUTROPHILS ABSOLUTE AUTO 4.81 K/mm3 (1.96-9.15); NEUTROPHILS PERCENT AUTO 59 % (41-73); NRBC ABSOLUTE 0.02 K/mm3 (0.00-0.02); NRBC Auto 0.2 /100 WBC (0.0-0.2); Platelet Count 281 K/mm3 (150-400); RDW Coefficient Variation 17.2 % (11.7-14.2); RDW Standard Deviation 54.4 fL (35.1-46.3); Red Blood Cell Count 4.59 M/mm3 (4.30-5.90); White Blood Cell Count 8.21 K/mm3 (4.00-11.30)
[2023-08-14 23:46] LABS: Albumin, Blood 3.6 g/dL (3.4-5.0); Albumin/Globulin Ratio 1.1 (0.8-1.8); Bilirubin, Total 0.3 mg/dL (0.1-1.0); Bun/Creatinine Ratio 19.6 (12.0-20.0); Creatinine, Blood 1.07 mg/dL (0.60-1.20); Globulin, Blood 3.2 g/dL (2.2-4.0); Potassium, Blood 3.9 mmol/L (3.5-5.5); Total Protein, Blood 6.8 g/dL (6.4-8.2)
[2023-08-15 05:01] VITALS: BP 135/77
[2023-08-15 05:16] LABS: Magnesium, Blood 2.2 mg/dL (1.6-2.4); Phosphorus, Blood 2.5 mg/dL (2.5-4.9)
[2023-08-15] MEDS ORDERED: DIAZ2 PO (06:08)
[2023-08-15] MEDS ORDERED: HYDACE10B PO (06:08)
[2023-08-15] MEDS ORDERED: DOCU100 PO (06:08)
[2023-08-15] MEDS ORDERED: CEPH500 PO (06:08)
== END 2023-08-15 06:32 | disposition home or self-care (01) ==
LOC: ER 22:41
PROVIDERS: Student in an Organized Health Care Education/Training Program
DX: L03.115 Cellulitis of right lower limb (principal); M12.9 Arthropathy, unspecified; G62.9 Polyneuropathy, unspecified; I10 Essential (primary) hypertension
CPT/HCPCS: 80053; 83735; 84100; 85025; 93005; 93010; 93971; 96365; 96375; 96376; 99284-25; A9270; J0696; J1885; J3360

== ENCOUNTER 2023-08-19 11:57 | Emergency (ER) | payer BC ==
[~2023-08-19] VITALS: Ht 193 cm; Wt 138.3 kg
[~2023-08-19 11:57] MED LIST changes: +CEPH500 PO; +DIAZ2 PO; +DOCU100 PO
[2023-08-19 12:30] VITALS: BP 136/92
[2023-08-19] MEDS ORDERED: CLIN150 PO (12:41)
== END 2023-08-19 12:57 | disposition home or self-care (01) ==
LOC: ER 11:57
DX: G62.9 Polyneuropathy, unspecified (principal); R19.7 Diarrhea, unspecified; L03.90 Cellulitis, unspecified; I10 Essential (primary) hypertension; Z88.8 Allergy status to other drugs, medicaments and biological substances; Z79.82 Long term (current) use of aspirin; Z79.899 Other long term (current) drug therapy
CPT/HCPCS: A9270; J1885

== ENCOUNTER 2023-09-02 12:46 | Emergency (ER) | payer BC ==
[~2023-09-02] VITALS: Ht 195.6 cm; Wt 124.7 kg
[~2023-09-02 12:46] MED LIST changes: +CLIN150 PO
[2023-09-02 12:57] VITALS: BP 190/86
== END 2023-09-02 13:38 | disposition home or self-care (01) ==
LOC: ER 12:46
DX: G89.4 Chronic pain syndrome (principal); M79.605 Pain in left leg; M79.604 Pain in right leg; I10 Essential (primary) hypertension; Z88.5 Allergy status to narcotic agent; Z79.82 Long term (current) use of aspirin; Z79.899 Other long term (current) drug therapy; Z79.52 Long term (current) use of systemic steroids
CPT/HCPCS: 99282

== ENCOUNTER 2023-09-12 00:43 | Emergency (ER) | payer BC ==
[~2023-09-12] VITALS: Ht 193 cm; Wt 131.5 kg
[2023-09-12] MEDS ORDERED: NEURONTIN300 MG PO (01:31)
[2023-09-12] MEDS ORDERED: BUPRENORPHINE HC2 M1 SL (01:31)
[2023-09-12] MEDS ORDERED: CEPH500 PO (02:49)
[2023-09-12 02:51] LABS: Albumin, Blood 3.8 g/dL (3.4-5.0); Albumin/Globulin Ratio 0.9 (0.8-1.8); Bilirubin, Total 0.6 mg/dL (0.1-1.0); Bun/Creatinine Ratio 16.8 (12.0-20.0); Calcium, Blood 9.5 mg/dL (8.5-10.1); Creatinine, Blood 0.95 mg/dL (0.60-1.20); Globulin, Blood 4.2 g/dL (2.2-4.0); Potassium, Blood 4.3 mmol/L (3.5-5.5)
[2023-09-12 04:01] VITALS: BP 147/87
== END 2023-09-12 04:01 | disposition home or self-care (01) ==
LOC: ER 00:43
PROVIDERS: Emergency Medicine
DX: L03.115 Cellulitis of right lower limb (principal); Z88.8 Allergy status to other drugs, medicaments and biological substances; Z79.899 Other long term (current) drug therapy; Z79.52 Long term (current) use of systemic steroids; I10 Essential (primary) hypertension
CPT/HCPCS: 73620; 80053; 96365; 96375; 99284-25; J0696; J2405

== ENCOUNTER 2023-09-20 02:30 | Emergency (ER) | payer BC ==
[~2023-09-20] VITALS: Ht 193 cm; Wt 129.3 kg
[~2023-09-20 02:30] MED LIST changes: +BUPRENORPHINE HC2 M1 SL; +NEURONTIN300 MG PO
[2023-09-20 04:19] LABS: BASOPHILS ABSOLUTE AUTO 0.06 K/mm3 (0.00-0.23); BASOPHILS PERCENT AUTO 1 % (0-2); EOSINOPHILS ABSOLUTE AUTO 0.21 K/mm3 (0.00-0.68); EOSINOPHILS PERCENT AUTO 2 % (0-6); Hematocrit 46.5 % (37.0-53.0); Hemoglobin 15.7 g/dL (13.5-17.5); IMMATURE GRAN ABSOLUTE AUTO 0.02 K/mm3 (0.00-0.10); IMMATURE GRAN PERCENT AUTO 0 % (0-1); LYMPHOCYTES ABSOLUTE AUTO 3.29 K/mm3 (0.84-5.20); LYMPHOCYTES PERCENT AUTO 30 % (21-46); MONOCYTES PERCENT AUTO 8 % (4-13); Mean Corpuscular HGB 30.2 pg (26.0-34.0); Mean Corpuscular HGB Conc 33.8 g/dL (31.5-36.5); Mean Corpuscular Volume 89 fL (80-100); Mean Platelet Volume 9.9 fL (9.1-12.4); NEUTROPHILS ABSOLUTE AUTO 6.33 K/mm3 (1.96-9.15); NEUTROPHILS PERCENT AUTO 59 % (41-73); Platelet Count 391 K/mm3 (150-400); RDW Coefficient Variation 14.5 % (11.7-14.2); RDW Standard Deviation 47.3 fL (35.1-46.3); White Blood Cell Count 10.81 K/mm3 (4.00-11.30)
[2023-09-20 04:40] LABS: Albumin, Blood 4.3 g/dL (3.4-5.0); Albumin/Globulin Ratio 1.1 (0.8-1.8); Bilirubin, Total 0.4 mg/dL (0.1-1.0); Bun/Creatinine Ratio 24.2 (12.0-20.0); Calcium, Blood 9.5 mg/dL (8.5-10.1); Creatinine, Blood 0.95 mg/dL (0.60-1.20); Globulin, Blood 3.8 g/dL (2.2-4.0); Magnesium, Blood 2.3 mg/dL (1.6-2.4); Phosphorus, Blood 3.1 mg/dL (2.5-4.9); Total Protein, Blood 8.1 g/dL (6.4-8.2)
[2023-09-20 05:52] VITALS: BP 160/138
== END 2023-09-20 05:51 | disposition home or self-care (01) ==
LOC: ER 02:30
PROVIDERS: Emergency Medicine
DX: R11.2 Nausea with vomiting, unspecified (principal); E86.0 Dehydration; R53.83 Other fatigue; Z88.8 Allergy status to other drugs, medicaments and biological substances; Z79.899 Other long term (current) drug therapy; Z79.52 Long term (current) use of systemic steroids; I10 Essential (primary) hypertension
CPT/HCPCS: 80053; 83605; 83735; 84100; 85025; 93005; 93010; 96361; 96374; 96375; 99283-25; A9270; J1885; J2405; J7030

== ENCOUNTER 2023-10-11 05:08 | Emergency (ER) | payer BC ==
[~2023-10-11] VITALS: Ht 193 cm; Wt 136.1 kg
[2023-10-11 05:57] LABS: BASOPHILS ABSOLUTE AUTO 0.04 K/mm3 (0.00-0.23); BASOPHILS PERCENT AUTO 0 % (0-2); EOSINOPHILS ABSOLUTE AUTO 0.25 K/mm3 (0.00-0.68); EOSINOPHILS PERCENT AUTO 3 % (0-6); Hematocrit 42.2 % (37.0-53.0); IMMATURE GRAN ABSOLUTE AUTO 0.03 K/mm3 (0.00-0.10); IMMATURE GRAN PERCENT AUTO 0 % (0-1); LYMPHOCYTES ABSOLUTE AUTO 2.76 K/mm3 (0.84-5.20); LYMPHOCYTES PERCENT AUTO 28 % (21-46); MONOCYTES ABSOLUTE AUTO 0.84 K/mm3 (0.16-1.47); MONOCYTES PERCENT AUTO 8 % (4-13); Mean Corpuscular HGB 29.6 pg (26.0-34.0); Mean Corpuscular HGB Conc 33.2 g/dL (31.5-36.5); Mean Corpuscular Volume 89 fL (80-100); Mean Platelet Volume 9.7 fL (9.1-12.4); NEUTROPHILS ABSOLUTE AUTO 6.05 K/mm3 (1.96-9.15); NEUTROPHILS PERCENT AUTO 61 % (41-73); Platelet Count 330 K/mm3 (150-400); RDW Coefficient Variation 14.2 % (11.7-14.2); Red Blood Cell Count 4.73 M/mm3 (4.30-5.90); White Blood Cell Count 9.97 K/mm3 (4.00-11.30)
[2023-10-11 06:26] LABS: Albumin, Blood 3.4 g/dL (3.4-5.0); Albumin/Globulin Ratio 0.9 (0.8-1.8); Bilirubin, Total 0.3 mg/dL (0.1-1.0); Bun/Creatinine Ratio 22.8 (12.0-20.0); Creatinine, Blood 1.01 mg/dL (0.60-1.20); Globulin, Blood 3.8 g/dL (2.2-4.0); Total Protein, Blood 7.2 g/dL (6.4-8.2)
[2023-10-11 06:30] VITALS: BP 140/66
[2023-10-11] MEDS ORDERED: PROM25 PO (07:10)
== END 2023-10-11 07:10 | disposition home or self-care (01) ==
LOC: ER 05:08
PROVIDERS: Emergency Medicine
DX: R11.2 Nausea with vomiting, unspecified (principal); L40.50 Arthropathic psoriasis, unspecified; I34.1 Nonrheumatic mitral (valve) prolapse; Z88.5 Allergy status to narcotic agent; Z79.899 Other long term (current) drug therapy
CPT/HCPCS: 80053; 85025; 96361; 96374; 96375; 99284-25; J1885; J2405

== ENCOUNTER 2023-10-21 15:10 | Observation (INO) | payer BC ==
[~2023-10-21] VITALS: Ht 193 cm; Wt 90.7 kg
[~2023-10-21 15:10] MED LIST changes: +PROM25 PO
[2023-10-21 16:54] LABS: BASOPHILS ABSOLUTE AUTO 0.02 K/mm3 (0.00-0.23); BASOPHILS PERCENT AUTO 0 % (0-2); EOSINOPHILS ABSOLUTE AUTO 0.02 K/mm3 (0.00-0.68); EOSINOPHILS PERCENT AUTO 0 % (0-6); Hemoglobin 15.4 g/dL (13.5-17.5); IMMATURE GRAN ABSOLUTE AUTO 0.04 K/mm3 (0.00-0.10); IMMATURE GRAN PERCENT AUTO 1 % (0-1); LYMPHOCYTES ABSOLUTE AUTO 1.92 K/mm3 (0.84-5.20); LYMPHOCYTES PERCENT AUTO 22 % (21-46); MONOCYTES PERCENT AUTO 5 % (4-13); Mean Corpuscular HGB Conc 33.5 g/dL (31.5-36.5); Mean Corpuscular Volume 90 fL (80-100); Mean Platelet Volume 9.8 fL (9.1-12.4); NEUTROPHILS ABSOLUTE AUTO 6.22 K/mm3 (1.96-9.15); NEUTROPHILS PERCENT AUTO 72 % (41-73); Platelet Count 334 K/mm3 (150-400); RDW Coefficient Variation 14.3 % (11.7-14.2); RDW Standard Deviation 46.5 fL (35.1-46.3); Red Blood Cell Count 5.14 M/mm3 (4.30-5.90); White Blood Cell Count 8.62 K/mm3 (4.00-11.30)
[2023-10-21 17:17] LABS: Albumin, Blood 3.4 g/dL (3.4-5.0); Albumin/Globulin Ratio 0.9 (0.8-1.8); Bilirubin, Total 0.5 mg/dL (0.1-1.0); Bun/Creatinine Ratio 17.5 (12.0-20.0); Calcium, Blood 9.1 mg/dL (8.5-10.1); Creatinine, Blood 0.74 mg/dL (0.60-1.20); Globulin, Blood 3.7 g/dL (2.2-4.0); Potassium, Blood 3.7 mmol/L (3.5-5.5); Total Protein, Blood 7.1 g/dL (6.4-8.2)
[2023-10-21] MEDS ORDERED: HYDR1TAB94 PO (17:33)
[2023-10-21 21:27] LABS: Influenza A, PCR NEGATIVE (NEGATIVE); Influenza B, PCR NEGATIVE (NEGATIVE); Resp Syncytial Virus, PCR NEGATIVE (NEGATIVE); SARS-Cov-2 (COVID-19) PCR, MMC NEGATIVE (NEGATIVE)
[2023-10-21 22:24] LABS: Source, Urine Clean Catch
[2023-10-21 22:27] LABS: Bilirubin, Urine Neg (Neg); Blood, Urine Neg (Neg); Glucose Qualitative, Urine Neg (Neg); Ketones, Urine 4+ (Neg); Leukocyte Esterase, Urine Neg (Neg); Nitrite, Urine Neg (Neg); Protein, Urine 2+ (Neg); Urobilinogen, Urine NORM (Normal)
[2023-10-21 22:38] LABS: U Amphetamine Screen Not Detected; U Barbituate Screen Not Detected; U Benzodiazapine Screen Not Detected; U Buprenorphine Screen Not Detected; U Cannabinoids Screen DETECTED; U Cocaine Screen Not Detected; U Methadone Screen Not Detected; U Methamphetamine Screen Not Detected; U Opiates Screen DETECTED; U Oxycodone Screen Not Detected; U Phencyclidine Screen Not Detected
[2023-10-21 22:41] LABS: Amorphous Light (0-Heavy); Appearance, Urine Clear (Clear); Bacteria Not Seen /hpf; Color, Urine Yellow (P-Yellow); Mucus Light (0-Heavy); Red Blood Cells, Urine Not Seen /hpf (0-2); Squamous Epithelial Cells Not Seen /hpf (Few); White Blood Cells, Urine 0-2 /hpf (0-5)
[2023-10-22 01:42] VITALS: BP 188/83
--- NOTE | 2023-10-22 02:51 | NUR ---
PATIENT IN FROM ED VIA WHEELCHAIR. TRANSFERRED TO BED COMFORTABLY. VITAL SIGNS AND WEIGHT TAKEN AND RECORDED. SKIN CHECK DONE. USHERED TO THE BATHROOM. WITH SITTER INSIDE THE ROOM. INITIAL SUCIDE SCREENING ASSESSMENT DONE. WILL CONTINUE TO MONITOR.
[2023-10-22 06:23] LABS: Albumin/Globulin Ratio 0.9 (0.8-1.8); Bilirubin, Total 0.3 mg/dL (0.1-1.0); Bun/Creatinine Ratio 21.9 (12.0-20.0); Calcium, Blood 8.8 mg/dL (8.5-10.1); Creatinine, Blood 0.73 mg/dL (0.60-1.20); Globulin, Blood 3.4 g/dL (2.2-4.0); Potassium, Blood 3.9 mmol/L (3.5-5.5); Total Protein, Blood 6.4 g/dL (6.4-8.2)
--- NOTE | 2023-10-22 06:40 | NUR ---
PATIENT IS ALERT AND ORIENTED X3, VITAL SIGNS TAKEN AND RECORDED. NOTED CALLOUS ON HIS LEFT HEEL AND GREAT BIG TOE. AMBULATE TO THE BATHROOM USING HIS OWN CRUTCHES. PATIENT STATED THAT HE IS ANXIOUS AND REQUEST MEDICATION TO CALM HIM DOWN. NOTIFIED DR. Tsering BENÍTEZ WITH ORDER MADE AND GIVEN ACCORDINGLY. ON SUICIDE PRECAUTION; WITH SITTER INSIDE PATIENT'S ROOM. NEED ATTENDED. WILL CONTINUE TO MONITOR.
[2023-10-22 06:42] LABS: BASOPHILS ABSOLUTE AUTO 0.03 K/mm3 (0.00-0.23); BASOPHILS PERCENT AUTO 0 % (0-2); EOSINOPHILS ABSOLUTE AUTO 0.07 K/mm3 (0.00-0.68); EOSINOPHILS PERCENT AUTO 1 % (0-6); IMMATURE GRAN ABSOLUTE AUTO 0.04 K/mm3 (0.00-0.10); IMMATURE GRAN PERCENT AUTO 0 % (0-1); LYMPHOCYTES ABSOLUTE AUTO 2.44 K/mm3 (0.84-5.20); LYMPHOCYTES PERCENT AUTO 20 % (21-46); MONOCYTES ABSOLUTE AUTO 0.88 K/mm3 (0.16-1.47); MONOCYTES PERCENT AUTO 7 % (4-13); Mean Corpuscular HGB 29.7 pg (26.0-34.0); Mean Corpuscular HGB Conc 33.3 g/dL (31.5-36.5); Mean Corpuscular Volume 89 fL (80-100); Mean Platelet Volume 10.5 fL (9.1-12.4); NEUTROPHILS ABSOLUTE AUTO 8.49 K/mm3 (1.96-9.15); NEUTROPHILS PERCENT AUTO 71 % (41-73); Platelet Count 311 K/mm3 (150-400); RDW Coefficient Variation 14.5 % (11.7-14.2); RDW Standard Deviation 46.9 fL (35.1-46.3); Red Blood Cell Count 4.72 M/mm3 (4.30-5.90); White Blood Cell Count 11.95 K/mm3 (4.00-11.30)
[2023-10-22 07:48] VITALS: BP 160/93
--- NOTE | 2023-10-22 08:05 | NUR ---
ASSUMED CARE OF PT/ CALLED DR COLLAZO- PT ALERT AND ANXIOUS. HE IS VERY FIDGETTY WITH REPETITIVE KICKING OUT OG HIS LEGS SHAKING HIS BODY CONSTANTLY. PT RECIEVED PO ATIVAN AT [phone]. [address] COLLAZO HE STATES THIS DIDN'T WORK AT ALL. SITTER AT THE BEDSIDE STATED THE PT HAS BEEN SHAKING LIKE HE IS SINCE THAT MED. SPOKE TO AND RECIEVED AN ORDER FOR ADDITIONAL DOSE OF ATIVAN 0.5 MG PO. PT HAS NO IV ACCESS AT THIS TIME. ORDER PLACED IN ORDER MANAGEMENT WILL ADMINISTER ONCE VERIFIED BY PHARMACY.
--- NOTE | 2023-10-22 11:52 | NUR ---
DR JEROME ROUNDING- IN THE ROOM SPEAKING TO THE PT RIGHT NOW. DULOXITINE CHANGED TO 120MG PER DAY. VERBAL PO OT 60MG CATCH UP DOSE ORDERED. PLAN AT THIS TIME IS TO DC TO IN PT PSYCH.
[2023-10-22 15:48] VITALS: BP 134/82
--- NOTE | 2023-10-22 16:47 | NUR ---
SHIFT SUMMARY- PT ALERT AND ORIENTED X4. HE WAS ADMITTED WITH BILL SI. SITTER PRESENT AT THE BEDSIDE. PT HAS A TIBIAL PLATEU FRACTURE FOR WITCH HE USES CRUTCHES WITH AMBULATION. BATHROOM IS LOCKED FOR PT SAFETY. PT CURRENTLY IN BED, SHORT CALL LIGHT IN PLACE, PT BELONGINGS PLACED IN THE LOCKED CLOSET. PT REQUESTED SOMETHING TO TALE THE EDGE OFF THE PAIN, IBUPROFEN Q6 ORDERED BY DR COLLAZO. DR JEROME CAME TO SEE THE PT AND IS RECOMENDING [facility]PT PSYCH FACILITY. WILL PASS ON IN REPORT TO NIGHT RN. PT IN BED, NO S&S OF DITRESS NOTED.
--- NOTE | 2023-10-22 17:46 | NUR ---
VISUAL HALLUCINATIONS- PT CALLED THIS RN TO THE BEDSIDE- PT STATES HE SPOKE TO DR JEROME EARLIER AND HE HAD TOLD HIM HE IS NOT HAVING VISUAL HALLUCINATIONS, HOWEVER HER STATES HE WAS INCORRECT, HE JUST HAD AN IMAGE OF HIS CAT JUMPING ON THE BED, BUT WHEN HE WENT TO PET IT HIS HAND PASSED THROUGH THE IMAGE. HE FELT SINCE HE HAD TOLD THE DOCTOR THE OPPOSITE EARLIER TODAY HE SHOULD MAKE SURE STAFF ARE AWARE OF THE HALLUCIANTIONS.
--- NOTE | 2023-10-22 18:42 | NUR ---
ATTN CARE MANAGEMENT RECIEVED A CALL FROM [facility] ([facility]) IS CURRENTLY CLOSED FOR ADMISSION D/T COVID POSSITIVE PTS. PER THIS REPORT THEY MAY BE OPEN FOR ADMISSIONS ON SUNDAY OR SUNDAY, IF NO FURTHER POSSITIVE TESTS RESULT.
--- NOTE | 2023-10-22 20:00 | NUR ---
NO PERIPHERAL IV IN PLACE AT BEGINNING OF SHIFT.
[2023-10-22 20:19] VITALS: BP 127/94
[2023-10-23 04:49] VITALS: BP 157/94
--- NOTE | 2023-10-23 05:03 | NUR ---
SHIFT SUMMARY - PT HAS CONTINUED WITH TREMORS, RESTLESS LEGS. PT HAS TAKEN MULTIPLE MEDICATIONS, PER DR. DUMONT NOTE, WITHOUT RELIEF OF SLEEP. PT'S TREMORS/RESTLESS LEGS MAKE IT DIFFICULT FOR SLEEP - SEE [facility] FOR MEDICATION MANAGEMENT. PT HAS A SITTER IN ROOM DUE TO HIS SI. CALL LIGHT WITHIN REACH. BED IN LOW POSITION. PT IS UP INDEPENDENTLY IN THE ROOM. FLUIDS AT BEDSIDE. SNACKS PROVIDED PER REQUEST. WILL CONTINUE TO MONITOR UNTIL AM SHIFT CHANGE.
[2023-10-23 07:44] VITALS: BP 149/92
--- NOTE | 2023-10-23 07:59 | NUR ---
NOTE: SPOKE WITH DR. COLLAZO ABOUT PT'S UNCONTROLLABLE PAIN. SHE SAID IT IS OKAY TO GIVE ULTRAM AT THIS TIME THIS PT IS INPATIENT BUT THE PLAN OF NO NARCOTICS, ULTRAM OR AMPHETAMINES WILL BE CONTINUED ONCE THE PT IS OUT OF THE HOSPITAL. WILL NOTIFY DR. DUMONT ONCE HE ROUNDS TODAY.
--- NOTE | 2023-10-23 15:09 | NUR ---
NOTE: SPOKE WITH NURSE AT [facility], REPORT WAS GIVEN TO THE NURSE. SHE SAID THE PT IS ACCEPTED AND THAT TRANSPORT CAN BE ARRANGED. ATTEMPTED TO CONTACT CARE MANAGEMENT BUT THERE WAS NO ANSWER. PROVIDER NUMBER PROVIDED FOR THE DOC TO DOC REPORT.
--- NOTE | 2023-10-23 16:58 | NUR ---
SHIFT SUMMARY PT AOX4, ON SI PRECAUTIONS WITH A 1:1 SITTER IN THE ROOM. MEDICATED FOR PAIN AND ANXIETY PER THE [facility]. NEW PAIN MEDS STARTED AND THE PT IS TOLERATING IT WELL, STATING IT IS PROVIDING HIM MORE RELIEF. HE HAS BEEN SLEEPING OFF AND ON THIS SHIFT FOR SMALL PERIODS OF TIME. HE IS PLEASANT AND COOPERATIVE. HE HAS HAD NO C/O CP/PRESSURE/SOB/N/V. CALL LIGHT WITHIN REACH, BED IN THE LOWEST POSITION. WILL REPORT TO ONCOMING SHIFT.
[2023-10-23 19:15] VITALS: BP 161/83
--- NOTE | 2023-10-23 22:04 | NUR ---
SPOKE WITH SANRDA PERKINS IN [facility], , OPTION 2. THEY CONFIRMED THAT THEY HAVE A BED FOR THE PATIENT IN THE [facility], THE OFFICIAL ROOM NUMBER WILL BE DETERMINED WHEN THE PATIENT ARRIVES THERE. THEY ALSO CONFIRMED THAT THE NURSE TO NURSE AND DR TO DR REPORT WAS ALREADY COMPLETED TODAY AND THAT WE JUST NEEDED TO ARRANGE FOR [facility]. SPOKE WITH [facility], [facility] [phone], REGARDING ARRANGING TRANSPORT. THEY ARE SHORT A INSTITUTIONAL RESEARCH DIRECTOR DUE TO ILLNESS AND THE SOONEST THEY CAN TRANSPORT THE PATIENT IS TOMORROW, 10/24/23, AT 5:15 PM. SHE ASKED THAT WE CALL HER AFTER 8 AM TOMORROW TO OFFICIALLY ARRANGE THE TRANSPORT, FOR NOW SHE HAS THE PT MARKED DOWN FOR THE 5:15 PM SLOT, HOWEVER IT MIGHT BE POSSIBLE TO FAST FOOD RESTAURANT MANAGER THE PATIENT SOONER BUT SHE WILL NOT KNOW FOR SURE UNTIL AFTER 8 AM TOMORROW. I SPOKE WITH SANDRA MELTON TO LET THEM KNOW ABOUT THE TRANSPORT TIME BUT THAT WE MIGHT ALSO BE ABLE TO GET THE PATIENT PICKED UP SOONER BUT WOULD NOT KNOW UNTIL AFTER 8 AM TOMORROW WHEN WE OFFICIALLY SPEAK TO [facility] TO ARRANGE THE FAST FOOD RESTAURANT MANAGER. SHE CONFIRMED THAT THE PATIENT WOULD STILL HAVE A BED EVEN WITH THE 5:15 PM PICKUP TIME HERE TOMORROW. I WILL MAKE SURE THE DAY STAFF IS AWARE THAT THEY NEED TO CALL TO OFFICIALLY ARRANGE THE TRANSPORT AND WHEN THEY KNOW THE OFFICIAL TIME OF PICKUP TO CALL SANDRA PERKINS BACK AND LET THEM KNOW THE OFFICAL TIME OF FAST FOOD RESTAURANT MANAGER.
--- NOTE | 2023-10-23 22:15 | NUR ---
SPOKE WITH FERNANDO WHO IS THE HOSPITALIST ON AT THIS TIME. LET HIM KNOW ABOUT THE [facility] BED ACCEPTING THE PT AND THAT THE RN TO RN AND DR TO DR HAS ALREADY BEEN DONE. ALSO LET HIM KNOW ABOUT THE SECURE TRANSPORT TIME SET AT THIS TIME TO MOST LIKELY BE AT 5:15 PM TOMORROW BUT THAT WE WOULD BE CALLING [facility] AFTER 8 AM TO OFFICIALLY ARRANGE THE TRANSPORT AND TO FIND OUT IF WE HAVE A CHANCE FOR AN EARLIER MERCHANDISE DISTRIBUTOR TIME. AT THIS TIME THERE IS NOT AN OFFICIAL DISCHARGE ORDER THOUGH THE PROGRESS NOTE FROM THE DR TODAY STATES THE PT IS MEDICALLY STABLE FOR DISCHARGE. MICHELE WOULD LIKE US TO CALL THE HOSPITALIST ON IN THE AM AFTER WE SPEAK TO [facility] TO GET THE DISCHARGE ORDER. I WILL MAKE SURE THAT THE DAY STAFF IS AWARE OF THIS REQUEST.
[2023-10-24 03:50] VITALS: BP 163/80
--- NOTE | 2023-10-24 04:41 | NUR ---
SHIFT SUMMARY 58 YR M ADMITTED ON 10/21/23. FULL CODE. NO ACUTE CHANGES THIS SHIFT. PT HAS BASICALLY NOT SLEPT ALL NIGHT. HE HAD APPROX 5-10 MINUTES OF SLEEP WHERE HE WAS SNORING ABOUT 3-4 TIMES THIS SHIFT. HE HAS BEEN VERY RESTLESS W/ TREMORS AND RESTLESS LEG SYNDROME. HE HAS HAD MULTIPLE MEDICATIONS PER [facility] INCLUDING TRAMADOL, SEROQUEL, AND HYDROXYZINE BUT NOTHING HAS HELPED HIM TO SLEEP. HE DOES NOT APPEAR TO HAVE HAD ANY HALLUCINATIONS THIS SHIFT. HE STATED SEVERAL TIMES THAT HE IS WORRIED ABOUT GETTING MEDS THAT HE "MUST TAKE" TOMORROW. HE IS INDEPENDANT IN THE ROOM AND HAS BEEN UP TO THE BATHROOM MANY TIMES DURING THE SHIFT. HE ALSO MOVED FROM THE BED TO THE CHAIR TO THE BENCH MULTIPLE TIMES. HE IS VERY RESTLESS.
[2023-10-24 05:30] VITALS: BP 173/91
[2023-10-24 07:30] VITALS: BP 158/86
--- NOTE | 2023-10-24 08:45 | NUR ---
CONFIRMED [facility] TODAY FOR 5:15 PM, CALLED DR COLLAZO TO [facility], CONFIRMED WITH [facility] BED IS STILL AVAILABLE AND THE TRANSPORT TIME
[2023-10-24 09:03] VITALS: BP 158/86
[2023-10-24] MEDS ORDERED: HYDROCODONE-AC1 EAC7 PO (11:18)
[2023-10-24] MEDS ORDERED: PROZAC40 MG PO (11:19)
[2023-10-24] MEDS ORDERED: Acetaminophen325 M1 PO (11:24)
[2023-10-24] MEDS ORDERED: HYDPAM50 PO (11:25)
[2023-10-24] MEDS ORDERED: VISCOUS LIDOCAINE MT (11:27)
[2023-10-24] MEDS ORDERED: DIPHENHYDR12.5 MG/5 MT (11:28)
[2023-10-24] MEDS ORDERED: Seroquel Xr50 MG PO (11:28)
[2023-10-24] MEDS ORDERED: ROPI.25 PO (11:29)
[2023-10-24] MEDS ORDERED: TRAM50 PO (11:29)
[2023-10-24] MEDS ORDERED: FOLI1 PO (11:41)
[2023-10-24] MEDS ORDERED: METHOTREXATE2.510 PO (11:41)
[2023-10-24 15:03] VITALS: BP 135/53
--- NOTE | 2023-10-24 17:32 | NUR ---
DISCHARGE/TRANSFER NOTE PT DISCHARGED AND TRANSFERED TO [facility]. CALL PLACED TO THE FACILITY TO INFORM THEM THAT HE IS ON HIS WAY. PAPERWORK PROVIDED TO THE TRANSPORTER. PERSONAL BELONGINGS ALSO PROVIDED. PT LEFT IN PAPER SCRUBS, DINNER PROVIDED PRIOR TO TRANSPORT. PT HAS NO IV DURING HIS ADMIT.
== END 2023-10-24 17:30 ==
LOC: ER 15:10 → EOR 18:47 → MEDS 18:47
PROVIDERS: Emergency Medicine; Physician Assistant; ADMIT Student in an Organized Health Care Education/Training Program
DX: F32.9 Major depressive disorder, single episode, unspecified (principal); R45.851 Suicidal ideations; R44.2 Other hallucinations; I10 Essential (primary) hypertension; G89.29 Other chronic pain; L40.50 Arthropathic psoriasis, unspecified; Z79.899 Other long term (current) drug therapy; D72.829 Elevated white blood cell count, unspecified; G47.00 Insomnia, unspecified; G25.81 Restless legs syndrome
CPT/HCPCS: 0241U; 36415; 80053; 81001; 83735; 85025; 86592; 96372; 96374; 96375; 99285; A9270; G0378; G0480; J1650; J1885; J2405; J8610

== ENCOUNTER 2024-02-14 02:34 | Observation (INO) | payer BC ==
[~2024-02-14] VITALS: Ht 193 cm; Wt 127.0 kg
[~2024-02-14 02:34] MED LIST changes: +Acetaminophen325 M1 PO; +DIPHENHYDR12.5 MG/5 MT; +FOLI1 PO; +HYDPAM50 PO; +HYDR1TAB94 PO; +HYDROCODONE-AC1 EAC7 PO; +METHOTREXATE2.510 PO; +PROZAC40 MG PO; +ROPI.25 PO; +Seroquel Xr50 MG PO; +VISCOUS LIDOCAINE MT
[2024-02-14] MEDS ORDERED: MORPHINE SULFAT15 M1 PO ×2 (03:08→07:43)
[2024-02-14] MEDS ORDERED: CARBIDOPA-LEVO1 EA15 PO (03:08)
[2024-02-14 03:17] LABS: Source, Urine Clean Catch
[2024-02-14 03:19] LABS: BASOPHILS ABSOLUTE AUTO 0.04 K/mm3 (0.00-0.23); BASOPHILS PERCENT AUTO 0 % (0-2); EOSINOPHILS PERCENT AUTO 1 % (0-6); Hemoglobin 13.8 g/dL (13.5-17.5); IMMATURE GRAN ABSOLUTE AUTO 0.02 K/mm3 (0.00-0.10); IMMATURE GRAN PERCENT AUTO 0 % (0-1); LYMPHOCYTES ABSOLUTE AUTO 3.23 K/mm3 (0.84-5.20); LYMPHOCYTES PERCENT AUTO 32 % (21-46); MONOCYTES PERCENT AUTO 8 % (4-13); Mean Corpuscular HGB 31.4 pg (26.0-34.0); Mean Corpuscular HGB Conc 35.4 g/dL (31.5-36.5); Mean Corpuscular Volume 89 fL (80-100); Mean Platelet Volume 9.9 fL (9.1-12.4); NEUTROPHILS ABSOLUTE AUTO 5.91 K/mm3 (1.96-9.15); NEUTROPHILS PERCENT AUTO 59 % (41-73); Platelet Count 251 K/mm3 (150-400); RDW Coefficient Variation 13.7 % (11.7-14.2); RDW Standard Deviation 44.8 fL (35.1-46.3); Red Blood Cell Count 4.39 M/mm3 (4.30-5.90)
[2024-02-14 03:20] LABS: Bilirubin, Urine Neg (Neg); Blood, Urine Neg (Neg); Glucose Qualitative, Urine Neg (Neg); Ketones, Urine Neg (Neg); Leukocyte Esterase, Urine Neg (Neg); Nitrite, Urine Neg (Neg); Protein, Urine Neg (Neg); Specific Gravity, Urine 1.015 (1.003-1.022); Urobilinogen, Urine NORM (Normal)
[2024-02-14 03:28] LABS: Appearance, Urine Clear (Clear); Color, Urine Yellow (P-Yellow)
[2024-02-14 03:51] LABS: Albumin, Blood 3.5 g/dL (3.4-5.0); Albumin/Globulin Ratio 1.2 (0.8-1.8); Bilirubin, Total 0.3 mg/dL (0.1-1.0); Bun/Creatinine Ratio 18.4 (12.0-20.0); Calcium, Blood 9.2 mg/dL (8.5-10.1); Creatinine, Blood 0.92 mg/dL (0.60-1.20); Total Protein, Blood 6.5 g/dL (6.4-8.2)
[2024-02-14 04:07] LABS: U Amphetamine Screen Not Detected; U Barbituate Screen Not Detected; U Benzodiazapine Screen Not Detected; U Buprenorphine Screen Not Detected; U Cannabinoids Screen DETECTED; U Cocaine Screen Not Detected; U Methadone Screen Not Detected; U Methamphetamine Screen Not Detected; U Opiates Screen DETECTED; U Oxycodone Screen Not Detected; U Phencyclidine Screen Not Detected
[2024-02-14] MEDS ORDERED: METPRE4DP PO (05:41)
[2024-02-14] MEDS ORDERED: Robaxin750 MG PO (05:41)
[2024-02-14] MEDS ORDERED: PredniSONE 20 MG Tab PO ONE (05:45)
[2024-02-14] MEDS ORDERED: GABA300 PO ×2 (05:45→07:59)
[2024-02-14] MEDS ORDERED: Methocarbamol 500 MG Tab PO ONE (05:45)
[2024-02-14] MEDS ORDERED: Ketorolac Tromethamine 15mg Vial IV ONE (05:45)
[2024-02-14] MEDS ORDERED: Gabapentin 300 MG Cap PO ONE (05:45)
[2024-02-14] MEDS ORDERED: Ibuprofen 400 MG Tab PO PRN (06:40)
[2024-02-14] MEDS ORDERED: Acetaminophen 325 MG TABLET PO PRN (06:40)
[2024-02-14] MEDS ORDERED: Seroquel Xr50 MG PO (07:44)
[2024-02-14] MEDS ORDERED: CATAPRES0.1 MG PO (07:47)
[2024-02-14] MEDS ORDERED: PANT40 PO (08:00)
[2024-02-14] MEDS ORDERED: Morphine Sulfate IR 15 MG Tab PO ONE (08:30)
[2024-02-14] MEDS ORDERED: Levodopa/Carbidopa 100 / 25 MG Tab PO SCH ×2 (09:00)
[2024-02-14] MEDS ORDERED: DULoxetine HCL 60 MG Capsule DR PO SCH (09:00)
[2024-02-14] MEDS ORDERED: Gabapentin 300 MG Cap PO SCH ×2 (09:00)
[2024-02-14] MEDS ORDERED: Atenolol 50 MG Tab PO SCH (09:00)
[2024-02-14] MEDS ORDERED: Folic Acid 1 MG TAB PO SCH (09:00)
[2024-02-14] MEDS ORDERED: Methotrexate Sod 2.5 MG Tab PO ONE (09:15)
[2024-02-14] MEDS ORDERED: Voltaren100 GM TOP (10:57)
[2024-02-14 11:12] VITALS: BP 138/94
[2024-02-14] MEDS ORDERED: Morphine Sulfate IR 15 MG Tab PO SCH (12:00)
[2024-02-14] MEDS ORDERED: QUEtiapine Fumarate 50 MG TAB PO SCH (21:00)
[2024-02-15] MEDS ORDERED: Pantoprazole Sodium 40 MG Injection IV SCH (06:00)
== END 2024-02-14 12:40 | disposition home or self-care (01) ==
LOC: ER 02:34 → EOR 02:35
PROVIDERS: ADMIT Emergency Medicine
DX: F33.2 Major depressive disorder, recurrent severe without psychotic features (principal); I10 Essential (primary) hypertension; Z88.8 Allergy status to other drugs, medicaments and biological substances; Z79.899 Other long term (current) drug therapy
CPT/HCPCS: 80053; 81003; 85025; 96374; 99285-25; A9270; G0378; J1885; J7512; J8610

== ENCOUNTER 2024-04-11 06:29 | Emergency (ER) | payer BC ==
[~2024-04-11] VITALS: Ht 193 cm; Wt 127.0 kg
[~2024-04-11 06:29] MED LIST changes: +CARBIDOPA-LEVO1 EA15 PO; +CATAPRES0.1 MG PO; +FENTANYL1 EA12 TOP; +GABA300 PO; +METPRE4DP PO; +MORPHINE SULFAT15 M1 PO; +NARCAN4 M1; +PANT40 PO; +Robaxin750 MG PO; +Voltaren100 GM TOP
[2024-04-11] MEDS ORDERED: Haloperidol Lactate Inj. 5 MG/ML Injection IV ONE (06:45)
[2024-04-11] MEDS ORDERED: DiphenhydrAMINE HCl 50 MG/ML 1ML Vial IV ONE (06:45)
[2024-04-11] MEDS ORDERED: PHENobarbitaL sodium 130 MG/ML VIAL IV ONE ×2 (09:15→10:50)
[2024-04-11 11:37] VITALS: BP 151/84
== END 2024-04-11 13:38 | disposition home or self-care (01) ==
LOC: ER 06:29
DX: R25.9 Unspecified abnormal involuntary movements (principal); I10 Essential (primary) hypertension; Z88.5 Allergy status to narcotic agent; Z88.8 Allergy status to other drugs, medicaments and biological substances; Z79.899 Other long term (current) drug therapy
CPT/HCPCS: 96374; 96375; 96376; 99284-25; J1200; J1630; J2560

== ENCOUNTER 2024-07-06 10:21 | Emergency (ER) | payer BC ==
[~2024-07-06] VITALS: Ht 193 cm; Wt 113.4 kg
[~2024-07-06 10:21] MED LIST changes: +DICY20 PO
[2024-07-06] MEDS ORDERED: Morphine Sulfate 4 MG/1 ML Injection IV ONE (10:50)
[2024-07-06 11:04] LABS: BASOPHILS ABSOLUTE AUTO 0.03 K/mm3 (0.00-0.23); BASOPHILS PERCENT AUTO 0 % (0-2); EOSINOPHILS ABSOLUTE AUTO 0.14 K/mm3 (0.00-0.68); EOSINOPHILS PERCENT AUTO 2 % (0-6); Hematocrit 37.1 % (37.0-53.0); Hemoglobin 13.3 g/dL (13.5-17.5); IMMATURE GRAN ABSOLUTE AUTO 0.05 K/mm3 (0.00-0.10); IMMATURE GRAN PERCENT AUTO 1 % (0-1); LYMPHOCYTES PERCENT AUTO 29 % (21-46); MONOCYTES PERCENT AUTO 8 % (4-13); Mean Corpuscular HGB 32.8 pg (26.0-34.0); Mean Corpuscular HGB Conc 35.8 g/dL (31.5-36.5); Mean Corpuscular Volume 91 fL (80-100); Mean Platelet Volume 9.9 fL (9.1-12.4); NEUTROPHILS PERCENT AUTO 60 % (41-73); Platelet Count 202 K/mm3 (150-400); RDW Coefficient Variation 14.3 % (11.7-14.2); RDW Standard Deviation 47.1 fL (35.1-46.3); Red Blood Cell Count 4.06 M/mm3 (4.30-5.90); White Blood Cell Count 7.82 K/mm3 (4.00-11.30)
[2024-07-06 11:23] LABS: Albumin, Blood 3.5 g/dL (3.4-5.0); Albumin/Globulin Ratio 1.2 (0.8-1.8); Bilirubin, Total 0.4 mg/dL (0.1-1.0); Bun/Creatinine Ratio 22.6 (12.0-20.0); Calcium, Blood 9.1 mg/dL (8.5-10.1); Creatinine, Blood 0.75 mg/dL (0.60-1.20); Potassium, Blood 4.8 mmol/L (3.5-5.5); Total Protein, Blood 6.5 g/dL (6.4-8.2)
[2024-07-06 12:30] VITALS: BP 149/61
[2024-07-06] MEDS ORDERED: Haloperidol 1 MG Tab PO ONE (13:25)
[2024-07-06] MEDS ORDERED: HYDROcodone 5-APAP 325 TAB PO ONE (14:25)
[2024-07-06] MEDS ORDERED: Ketorolac Tromethamine 15mg Vial IV ONE (14:25)
== END 2024-07-06 17:00 | disposition home or self-care (01) ==
LOC: ER 10:21
PROVIDERS: Emergency Medicine
DX: S70.11XA Contusion of right thigh, initial encounter (principal); R25.1 Tremor, unspecified; W06.XXXA Fall from bed, initial encounter; Z79.899 Other long term (current) drug therapy; Z88.8 Allergy status to other drugs, medicaments and biological substances
CPT/HCPCS: 73552; 80053; 83735; 85025; 96374; 96375; 99284-25; A9270; J1885; J2270

== ENCOUNTER 2024-08-11 09:37 | Inpatient (IN) | payer SELFPAY ==
[~2024-08-11] VITALS: Ht 193 cm; Wt 139.7 kg
[2024-08-11] VITALS (15 sets, daily range): BP systolic 128–151; BP diastolic 64–87
[~2024-08-11 09:37] MED LIST changes: +AUVELITY ER 451 EACH PO; +Hydroxyzine HCl50 MG PO; +LOSA25 PO; +VOGELXO75 GM TD
[2024-08-11] MEDS ORDERED: OxyCODONE HCL 10 MG TABCR PO SCH (10:30)
[2024-08-11] MEDS ORDERED: CeFAZolin Sodium 3,000 MG in NS 100 ML IV SCH ×2 (10:30→20:00)
[2024-08-11] MEDS ORDERED: Tranexamic Acid 100 ML IV SCH (10:30)
[2024-08-11] MEDS ORDERED: Ropivacaine 0.5% HCl/Pf 123.125 MG,EPINEPHrine HCL 0.25 MG,Ketorolac Tromethamine 15 MG... INFIL SCH (10:30)
[2024-08-11] MEDS ORDERED: Chlorhexidine Mouth Care 15 ML UDC MT SCH (10:30)
[2024-08-11] MEDS ORDERED: Lactated Ringer's 1,000 ML IV SCH ×2 (10:30→12:15)
[2024-08-11] MEDS ORDERED: Acetaminophen 500 MG Tab PO SCH ×2 (10:30→16:00)
--- NOTE | 2024-08-11 11:04 | NUR ---
History, Chart, Medications and Allergies reviewed before start of procedure. Pre-Op teaching done. Pt verbalizes understanding. Patient confirms NPO status and agrees with scheduled surgery. PT BELONINGS AND BACKPACK PLACED UNDER GURNEY.
[2024-08-11] MEDS ORDERED: propofoL 50 ML IV ONE ×2 (12:00→14:09)
[2024-08-11] MEDS ORDERED: Magnesium Hydroxide Conc 10 ML UDC PO PRN (12:15)
[2024-08-11] MEDS ORDERED: Metoclopramide HCl 5MG / ML 2ML Vial IV PRN (12:15)
[2024-08-11] MEDS ORDERED: HyDROXyzine HCl 25 MG Tab PO PRN (12:15)
[2024-08-11] MEDS ORDERED: HYDROmorphone HCl/Pf 1MG SYR IV PRN (12:20)
[2024-08-11] MEDS ORDERED: Bisacodyl 10 MG Supp PR PRN (12:20)
[2024-08-11] MEDS ORDERED: FLU VACC TS2024-25(6MOS UP)/PF 45 MCG/0.5 ML SYRINGE IM SCH (12:20)
[2024-08-11] MEDS ORDERED: propofoL 20 ML IV ONE (12:23)
[2024-08-11] MEDS ORDERED: OxyCODONE HCL 5 MG TAB PO PRN ×2 (12:25)
[2024-08-11] MEDS ORDERED: Vancomycin HCL 1,000 MG in NS 250 ML IV SCH (12:25)
[2024-08-11] MEDS ORDERED: Ondansetron HCl 2 MG / ML 2ML Vial IV PRN (12:25)
[2024-08-11] MEDS ORDERED: Promethazine HCl 25 MG Tab PO PRN (12:25)
[2024-08-11] MEDS ORDERED: ePHEDrine Sulfate 50 MG/ML 1ML Injection ONE (12:27)
[2024-08-11] MEDS ORDERED: ASPI81CH PO (12:27)
[2024-08-11] MEDS ORDERED: OXAYDO5 M2 PO (12:29)
[2024-08-11] MEDS ORDERED: DiphenhydrAMINE HCL 25 MG Cap PO PRN (12:45)
[2024-08-11] MEDS ORDERED: propofoL 40 ML IV ONE ×2 (13:22→13:40)
[2024-08-11] MEDS ORDERED: Phenylephrine HCl 100 MCG/ML-NS 10MLSYR (1MG/10ML) ONE (13:32)
--- NOTE | 2024-08-11 16:00 | NUR ---
PT ARRIVED TO THE ROOM FROM PACU AT APPROXIMATELY 1555. PT ALERT, ORIENTED AND PLEASANT. PT DENIES PAIN BUT IS ABLE TO MOVE BLE. DRESSING C/D/I TO R KNEE. SPINAL ANESTHESIA SITE WNL. PT EDUCATED TO USE CALL LIGHT.
[2024-08-11] MEDS ORDERED: Ketorolac Tromethamine 15mg Vial IV SCH (18:00)
--- NOTE | 2024-08-11 20:22 | NUR ---
SHIFT SUMMARY PT IS POD#0. PAIN MANAGED WITH PO PAIN MEDICATION. PT TOLERATING PO. VSS. WAITING FOR POST-OP VOID. REPORT GIVEN TO CHANELLE FLORES.
[2024-08-11] MEDS ORDERED: Docusate Sodium 100 MG Cap PO SCH (21:00)
--- NOTE | 2024-08-12 04:19 | NUR ---
SHIFT SUMMARY POD1 R TKA. NATHALYIG REMAINS C/D/I. SENSATION AND CIRCULATION REMAINS INTACT, BRUISING AND SWELLING SLOWLY INCREASING. CRYO REMAINS IN PLACE. PT MEDICATED FOR PAIN W/OXY AND DILAUDID. PT VOIDING INTO URINAL W/O DIFFICULTY. ONE FAILED ATTEMPT AT GETTING THE PT OOB W/ 2 RN'S. PT WAS DIFFUSELY WEAK, TREMORING, AND UNABLE TO STAND UP ALL THE WAY. PT UNSURE IF HE WILL BE ABLE TO MANAGE HIMSELF AT HOME, PLAN TO HAVE PHYSICAL THERAPY WORK WITH PT AND DISCHARGE PLANNING ASSISTANCE.
[2024-08-12 05:26] LABS: BASOPHILS ABSOLUTE AUTO 0.05 K/mm3 (0.00-0.23); BASOPHILS PERCENT AUTO 0 % (0-2); EOSINOPHILS ABSOLUTE AUTO 0.27 K/mm3 (0.00-0.68); EOSINOPHILS PERCENT AUTO 2 % (0-6); Hematocrit 41.8 % (37.0-53.0); Hemoglobin 14.2 g/dL (13.5-17.5); IMMATURE GRAN ABSOLUTE AUTO 0.06 K/mm3 (0.00-0.10); IMMATURE GRAN PERCENT AUTO 0 % (0-1); LYMPHOCYTES ABSOLUTE AUTO 3.92 K/mm3 (0.84-5.20); LYMPHOCYTES PERCENT AUTO 29 % (21-46); MONOCYTES ABSOLUTE AUTO 1.22 K/mm3 (0.16-1.47); MONOCYTES PERCENT AUTO 9 % (4-13); Mean Corpuscular HGB 31.9 pg (26.0-34.0); Mean Corpuscular Volume 94 fL (80-100); Mean Platelet Volume 9.6 fL (9.1-12.4); NEUTROPHILS ABSOLUTE AUTO 8.05 K/mm3 (1.96-9.15); NEUTROPHILS PERCENT AUTO 59 % (41-73); Platelet Count 224 K/mm3 (150-400); RDW Coefficient Variation 12.8 % (11.7-14.2); RDW Standard Deviation 43.8 fL (35.1-46.3); Red Blood Cell Count 4.45 M/mm3 (4.30-5.90); White Blood Cell Count 13.57 K/mm3 (4.00-11.30)
[2024-08-12 06:11] LABS: Bun/Creatinine Ratio 27.4 (12.0-20.0); Calcium, Blood 8.4 mg/dL (8.5-10.1); Creatinine, Blood 1.06 mg/dL (0.60-1.20); Magnesium, Blood 1.9 mg/dL (1.6-2.4); Potassium, Blood 4.2 mmol/L (3.5-5.5)
--- NOTE | 2024-08-12 06:25 | NUR ---
MEDICATION MANAGEMENT 50 MG TENORMIN, AND 25 MG LOSARTAN PT REPORTS HE TOOK HIS HOME MEDICATION THIS AM.
[2024-08-12 07:10] VITALS: BP 147/90
[2024-08-12] MEDS ORDERED: Misc. Tablet PO SCH (09:00)
[2024-08-12] MEDS ORDERED: Losartan Potassium 25 MG Tab PO SCH (09:00)
[2024-08-12] MEDS ORDERED: Atenolol 50 MG Tab PO SCH (09:00)
[2024-08-12] MEDS ORDERED: Aspirin 81 MG Chew PO SCH (09:00)
[2024-08-12 14:38] VITALS: BP 143/73
--- NOTE | 2024-08-12 16:38 | NUR ---
SHIFT SUMMARY PT IS POD#1 FROM R TKA WITH DR. BARRON. PAIN MANAGED WITH PO PAIN MEDICATION. PT REQUIRED DILAUDID X1 AFTER WORKING WITH PHYSICAL THERAPY. PT WAS ABLE TO STAND AND TRANSFER FROM THE BED TO THE CHAIR AND BACK TO THE BED WITH THERAPY. PT IS A MAX ASSIST FOR TRANSFERS. SNF RECOMMENDED. VSS. PT TOLERATING PO. PT USING THE URINAL TO VOID. PT HAS BEEN ASSISTED/ENCOURAGED TO KEEP RLE ELEVATED WITH KNEE STRAIGHT, ASSISTED WITH REPOSITIONING TO PREVENT EXTERNAL ROTATION OF THE R LEG. PT USES CALL LIGHT APPROIPRIATELY. VSS.
[2024-08-12] MEDS ORDERED: Gabapentin 400 MG Cap PO SCH (17:00)
[2024-08-12 19:39] VITALS: BP 134/77
[2024-08-12 23:13] VITALS: BP 152/65
[2024-08-13 03:59] VITALS: BP 147/61
--- NOTE | 2024-08-13 06:06 | NUR ---
SHIFT SUMMARY NOC. PT POD 2 FOR RIGHT TOTAL KNEE. PT A/O X4. PT PAIN CONTROLLED WITH OXY 10MG, TYLENOL AND TORADOL. PT NEEDED BREAKTHROUGH PAIN RELIEF WITH DILAUDID X1. DRESSING C/D/I. POLAR PACK IN PLACE. PT VOIDING URINE, TOLERATING PO INTAKE. BED IN LOWEST POSITION, CALL LIGHT IN REACH.
[2024-08-13 07:04] VITALS: BP 158/99
[2024-08-13 07:05] VITALS: BP 145/70
[2024-08-13] MEDS ORDERED: Ketorolac Tromethamine 15mg Vial IM PRN (11:50)
[2024-08-13] MEDS ORDERED: Ketorolac Tromethamine 15mg Vial IV PRN (13:00)
[2024-08-13 14:32] VITALS: BP 133/69
--- NOTE | 2024-08-13 16:57 | NUR ---
SHIFT SUMMARY PT REMAINED IN GOOD SPIRITS AND WAS ACTIVELY ENGAGED IN TREATMENT. PT WORKED WITH PHYICAL THERAPY X2. CARE MANAGEMENT SAW PT TO DISCUSS POSSIBLE DISCHARGE. DR BARRON ORDERED HOSPITALIST CONSULT DUE TO ONGOING PAIN MANAGEMENT ISSUES, PT HAS NEEDED SEVERAL DOSES OF IV MEDICATION FOR BREAKTHROUGH PAIN. PT'S DAUGHTER VISITED AND ALSO SPOKE WITH PRIMARY RN AND RESEARCH PSYCHOLOGIST RN. AT THIS POINT, PT WILL STILL NEED TO BE CLEARED BY PHYSICAL THERAPY AND/OR ANOTHER SAFE DISCHARGE PLAN PT HAS MANY CHRONIC PHYSICAL LIMITATIONS. PT WAS IN CHAIR MOST OF THE DAY AND PERFORMED RECOMMENDED EXERCISES.
--- NOTE | 2024-08-13 18:33 | NUR ---
PT BACK TO BED WITH 2 PERSON ASSIST. PT TRANSFERRED WITH VERY JERKY AND ERRATIC MOVEMENTS BUT WAS SAFELY TRANSFERRED TO BED. PT ABLE TO PULL HIMSELF UP IN BED [facility] AT [facility]. PT APPRECIATIVE OF CARE. CALL LIGHT IN REACH AND SIDE RAILS UP.
[2024-08-13 19:49] VITALS: BP 148/65
[2024-08-13] MEDS ORDERED: DEXTROMETHORPHAN PO SCH ×2 (21:00)
[2024-08-13] MEDS ORDERED: BUPROPION PO SCH ×2 (21:00)
[2024-08-14 04:42] VITALS: BP 156/76
--- NOTE | 2024-08-14 05:38 | NUR ---
SHIFT SUMMARY NOC. PT POD 3 FOR RIGHT TOTAL KNEE. PT A/O X4. PAIN CONTROLLED WITH OXY 10MG, TYLENOL, AND TORADOL. AQUACEL C/D/I WITH LIGHT SANGUINEOUS DRAINAGE. POLAR PACK IN PLACE. PT VOIDING URINE AND HAD A BM THIS SHIFT. BED IN LOWEST POSITION, CALL LIGHT IN REACH.
[2024-08-14 07:21] VITALS: BP 174/75
[2024-08-14 07:22] VITALS: BP 144/82
[2024-08-14] MEDS ORDERED: Enoxaparin 40 MG/0.4 ML SYR SC SCH (09:00)
--- NOTE | 2024-08-14 09:45 | NUR ---
DR AMAYA HAS BEEN IN TO SEE PT. NOTIFIED OF INCREASED SWELLING AND REDNESS TO ANTERIOR PORTION OF LLE BELOW KNEE. PT HAS NO COMPLAINTS AT THIS TIME. DRSG REMAIN C/D/I. AWAITING PHYSICAL THERAPY. NO NEW ORDERS.
[2024-08-14 15:32] VITALS: BP 121/65
--- NOTE | 2024-08-14 18:00 | NUR ---
SHIFT SUMMARY PT WORKED WITH PHYSICAL THERAPY AND WAS ABLE TO TRANSFER WITH 2 PERSON ASSIST CHAIR, WHICH HE REMAINED IN MOST OF THE DAY. POLAR PACK IN PLACE. ABBEY PO INTAKE WELL. PRN PAIN MEDICATION GIVEN. DRSG ON RLE C/D/I. PLAN TO D/C HOME TOMORROW ON HOME HEALTH. PT IN GOOD SPIRITS AND IS ENGAGING IN HIS CARE.
[2024-08-14 19:21] VITALS: BP 143/62
[2024-08-15 03:41] VITALS: BP 144/82
--- NOTE | 2024-08-15 04:52 | NUR ---
SHIFT SUMMARY PT IS POD 4 FROM R TOTAL KNEE. PAIN MEDICATED PER [facility]. VSS, AFEBRILE, SPO2 >93% ON RA. POLAR PACK IN PLACE. DRESSING TO R KNEE IS C/D/I, THERE CONTINUES TO BE REDNESS OF RLE, PROVIDER AWARE. PT USES URINAL INDEPENDENTLY. HE IS RESTING QUIETLY IN BED, BREATHING IS EVEN AND UNLABORED, CALL LIGHT IN REACH.
[2024-08-15 07:47] VITALS: BP 145/77
[2024-08-15 15:39] VITALS: BP 164/75
--- NOTE | 2024-08-15 16:11 | NUR ---
DISCHARGE: PACKET PRINTED AND PT EDUCATED. PAIN SCRIPT SENT TO PHARMACY PER DR. BARRON. PT GIVEN EXTRA AQUACEL DRESSINGS FOR HOME. HELPED TO OWN WHEELCHAIR WITH SLIDER BOARD AND 2 ASSIST. LEFT UNIT AT ABOUT 1600 VIA OWN WHEELCHAIR WITH DAHLIA MORTON
== END 2024-08-15 16:00 | disposition home health service (06) | DRG 470 ==
LOC: ORSCMMR 09:37 → SURS 09:37 → ORSCMMR 09:39 → ORD 13:30 → ORSCMMR 13:30 → SURS 15:37 → ORSCMMR 15:38 → SURS 15:39 → ORSCMMR 08-15 12:00 → SURS 08-15 16:00 → ORD 08-25 10:15
PROVIDERS: ADMIT Orthopaedic Surgery
PROC: 0SRC0JA Replacement of Right Knee Joint with Synthetic Substitute, Uncemented, Open Approach (ICD-10-PCS; principal; 2024-08-11 13:00)
DX: M17.11 Unilateral primary osteoarthritis, right knee (principal); M21.161 Varus deformity, not elsewhere classified, right knee; M24.561 Contracture, right knee; G89.29 Other chronic pain; F41.9 Anxiety disorder, unspecified; F32.A Depression, unspecified; Z91.51 Personal history of suicidal behavior; Z86.16 Personal history of COVID-19; Z99.3 Dependence on wheelchair; M54.50 Low back pain, unspecified; L40.8 Other psoriasis; Z86.74 Personal history of sudden cardiac arrest; Z90.49 Acquired absence of other specified parts of digestive tract; Z98.890 Other specified postprocedural states; Z88.5 Allergy status to narcotic agent; Z88.8 Allergy status to other drugs, medicaments and biological substances; R25.1 Tremor, unspecified
CPT/HCPCS: 36415; 73560-RT; 80048; 83735; 85025; 94760; 97110; 97116; 97163; 97530; A9270; C1713; C1776; J0171; J0690; J1170; J1650; J1885; J2371; J2405; J2704; J2795; J3370; J7050; J7120

== ENCOUNTER 2024-08-18 09:34 | Emergency (ER) | payer SELFPAY ==
[~2024-08-18] VITALS: Ht 193 cm; Wt 136.1 kg
[~2024-08-18 09:34] MED LIST changes: +ASPI81CH PO; +OXAYDO5 M2 PO
[2024-08-18] MEDS ORDERED: FISH OIL 1,0001 EA10 PO (11:14)
[2024-08-18] MEDS ORDERED: SULFAMETHOXAZO1 EAC1 PO (11:47)
[2024-08-18] MEDS ORDERED: Cyclobenzaprine HCl 10 MG Tab PO ONE (12:25)
[2024-08-18] MEDS ORDERED: Ketorolac Tromethamine 10 MG Tab PO ONE (12:25)
[2024-08-18] MEDS ORDERED: OxyCODONE HCL 5 MG TAB PO ONE ×2 (12:25→12:35)
[2024-08-18 12:26] LABS: BASOPHILS ABSOLUTE AUTO 0.03 K/mm3 (0.00-0.23); BASOPHILS PERCENT AUTO 0 % (0-2); EOSINOPHILS ABSOLUTE AUTO 0.29 K/mm3 (0.00-0.68); EOSINOPHILS PERCENT AUTO 3 % (0-6); Hematocrit 36.4 % (37.0-53.0); Hemoglobin 12.2 g/dL (13.5-17.5); IMMATURE GRAN ABSOLUTE AUTO 0.05 K/mm3 (0.00-0.10); IMMATURE GRAN PERCENT AUTO 1 % (0-1); LYMPHOCYTES ABSOLUTE AUTO 2.75 K/mm3 (0.84-5.20); LYMPHOCYTES PERCENT AUTO 28 % (21-46); MONOCYTES ABSOLUTE AUTO 0.78 K/mm3 (0.16-1.47); MONOCYTES PERCENT AUTO 8 % (4-13); Mean Corpuscular HGB 31.7 pg (26.0-34.0); Mean Corpuscular HGB Conc 33.5 g/dL (31.5-36.5); Mean Corpuscular Volume 95 fL (80-100); NEUTROPHILS ABSOLUTE AUTO 6.03 K/mm3 (1.96-9.15); NEUTROPHILS PERCENT AUTO 61 % (41-73); Platelet Count 293 K/mm3 (150-400); RDW Coefficient Variation 12.5 % (11.7-14.2); RDW Standard Deviation 43.1 fL (35.1-46.3); Red Blood Cell Count 3.85 M/mm3 (4.30-5.90); White Blood Cell Count 9.93 K/mm3 (4.00-11.30)
[2024-08-18 12:36] LABS: Albumin, Blood 3.1 g/dL (3.4-5.0); Albumin/Globulin Ratio 0.9 (0.8-1.8); Bilirubin, Total 0.5 mg/dL (0.1-1.0); Bun/Creatinine Ratio 18.9 (12.0-20.0); C-REACTIVE PROTEIN, EXT RANGE 4.73 mg/dL (0.000-0.300); Creatinine, Blood 0.95 mg/dL (0.60-1.20); Globulin, Blood 3.6 g/dL (2.2-4.0); Potassium, Blood 4.2 mmol/L (3.5-5.5); Total Protein, Blood 6.7 g/dL (6.4-8.2)
[2024-08-18 14:01] LABS: U Amphetamine Screen Not Detected; U Barbituate Screen Not Detected; U Benzodiazapine Screen DETECTED; U Buprenorphine Screen Not Detected; U Cannabinoids Screen Not Detected; U Cocaine Screen Not Detected; U Methadone Screen Not Detected; U Methamphetamine Screen Not Detected; U Opiates Screen Not Detected; U Oxycodone Screen DETECTED; U Phencyclidine Screen Not Detected
[2024-08-18] MEDS ORDERED: HYDROmorphone HCl/Pf 1MG SYR IV ONE (15:15)
[2024-08-18] MEDS ORDERED: Ondansetron HCl 2 MG / ML 2ML Vial IV ONE (15:15)
[2024-08-18 17:00] VITALS: BP 139/61
[2024-08-18] MEDS ORDERED: CEPH500 PO (17:48)
[2024-08-18] MEDS ORDERED: Percocet 5-3251 EACH PO (17:48)
== END 2024-08-18 20:00 | disposition home or self-care (01) ==
LOC: ER 09:34
PROVIDERS: Family Medicine
DX: M25.561 Pain in right knee (principal); L03.115 Cellulitis of right lower limb; M25.511 Pain in right shoulder; R53.1 Weakness; I10 Essential (primary) hypertension; Z96.651 Presence of right artificial knee joint; Z88.5 Allergy status to narcotic agent; Z88.8 Allergy status to other drugs, medicaments and biological substances; Z79.899 Other long term (current) drug therapy; W18.30XA Fall on same level, unspecified, initial encounter
CPT/HCPCS: 73560-RT; 80053; 82947; 85025; 85651; 86140; 93005; 93010; 96374; 96375; 99285-25; A9270; J2405

== ENCOUNTER 2024-09-21 07:14 | Emergency (ER) | payer BC ==
[~2024-09-21] VITALS: Ht 193 cm; Wt 131.5 kg
[~2024-09-21 07:14] MED LIST changes: +FISH OIL 1,0001 EA10 PO; +Percocet 5-3251 EACH PO; +SULFAMETHOXAZO1 EAC1 PO
[2024-09-21 08:34] LABS: BASOPHILS ABSOLUTE AUTO 0.03 K/mm3 (0.00-0.23); BASOPHILS PERCENT AUTO 0 % (0-2); EOSINOPHILS ABSOLUTE AUTO 0.09 K/mm3 (0.00-0.68); EOSINOPHILS PERCENT AUTO 1 % (0-6); Hematocrit 47.6 % (37.0-53.0); Hemoglobin 17.2 g/dL (13.5-17.5); IMMATURE GRAN ABSOLUTE AUTO 0.02 K/mm3 (0.00-0.10); IMMATURE GRAN PERCENT AUTO 0 % (0-1); LYMPHOCYTES ABSOLUTE AUTO 3.94 K/mm3 (0.84-5.20); LYMPHOCYTES PERCENT AUTO 43 % (21-46); MONOCYTES ABSOLUTE AUTO 0.68 K/mm3 (0.16-1.47); MONOCYTES PERCENT AUTO 8 % (4-13); Mean Corpuscular HGB 30.9 pg (26.0-34.0); Mean Corpuscular HGB Conc 36.1 g/dL (31.5-36.5); Mean Corpuscular Volume 86 fL (80-100); NEUTROPHILS ABSOLUTE AUTO 4.35 K/mm3 (1.96-9.15); NEUTROPHILS PERCENT AUTO 48 % (41-73); Platelet Count 268 K/mm3 (150-400); RDW Coefficient Variation 12.4 % (11.7-14.2); RDW Standard Deviation 38.9 fL (35.1-46.3); Red Blood Cell Count 5.56 M/mm3 (4.30-5.90); White Blood Cell Count 9.11 K/mm3 (4.00-11.30)
[2024-09-21 09:18] LABS: Albumin, Blood 4.6 g/dL (3.4-5.0); Albumin/Globulin Ratio 1.3 (0.8-1.8); Bilirubin, Total 0.5 mg/dL (0.1-1.0); Bun/Creatinine Ratio 18.8 (12.0-20.0); Creatinine, Blood 1.01 mg/dL (0.60-1.20); Globulin, Blood 3.5 g/dL (2.2-4.0); Potassium, Blood 3.9 mmol/L (3.5-5.5); Total Protein, Blood 8.1 g/dL (6.4-8.2)
[2024-09-21] MEDS ORDERED: Diphenoxylat/Atrop 2.5 / 0.025MG 1 Tab PO ONE (09:30)
[2024-09-21] MEDS ORDERED: Azithromycin 250 MG Tab PO ONE (09:30)
[2024-09-21] MEDS ORDERED: AZIT250 PO (09:31)
[2024-09-21] MEDS ORDERED: DIPATR PO (09:31)
[2024-09-21 10:05] VITALS: BP 119/84
== END 2024-09-21 11:55 | disposition home or self-care (01) ==
LOC: ER 07:14
PROVIDERS: Emergency Medicine
DX: R19.7 Diarrhea, unspecified (principal); Z79.899 Other long term (current) drug therapy; Z88.8 Allergy status to other drugs, medicaments and biological substances
CPT/HCPCS: 74177; 80053; 83690; 85025; 93005; 93010; 99284-25; A9270; Q9967

== ENCOUNTER 2025-01-21 20:38 | Emergency (ER) | payer BC ==
[~2025-01-21] VITALS: Ht 193 cm; Wt 127.0 kg
[~2025-01-21 20:38] MED LIST changes: +AZIT250 PO; +DIPATR PO
[2025-01-21 20:39] VITALS: BP 145/73
[2025-01-21] MEDS ORDERED: Ketamine HCl 100 MG / ML 5ML Vial IV ONE ×2 (21:15→22:00)
[2025-01-21] MEDS ORDERED: DULoxetine HCL 30 MG Cap DR PO ONE (22:40)
[2025-01-21] MEDS ORDERED: Pregabalin 75 MG Cap PO ONE (22:55)
[2025-01-21] MEDS ORDERED: Pregabalin 50 MG Capsule PO ONE (23:20)
== END 2025-01-21 23:23 | disposition home or self-care (01) ==
LOC: ER 20:38
DX: G62.9 Polyneuropathy, unspecified (principal); Z99.3 Dependence on wheelchair; Z88.8 Allergy status to other drugs, medicaments and biological substances; Z79.899 Other long term (current) drug therapy
CPT/HCPCS: 96374; 96376; 99284-25; A9270

== ENCOUNTER 2025-03-12 04:48 | Emergency (ER) | payer BC ==
[~2025-03-12] VITALS: Ht 193 cm; Wt 127.0 kg
[2025-03-12] MEDS ORDERED: Pantoprazole Sodium 40 MG Injection IV ONE (05:00)
[2025-03-12] MEDS ORDERED: Haloperidol Lactate Inj. 5 MG/ML Injection IM ONE (05:00)
[2025-03-12 05:17] LABS: Hematocrit 47.1 % (37.0-53.0); Hemoglobin 16.4 g/dL (13.5-17.5); Mean Corpuscular HGB 31.2 pg (26.0-34.0); Mean Corpuscular HGB Conc 34.8 g/dL (31.5-36.5); Mean Corpuscular Volume 90 fL (80-100); Mean Platelet Volume 9.5 fL (9.1-12.4); Platelet Count 224 K/mm3 (150-400); RDW Coefficient Variation 13.6 % (11.7-14.2); RDW Standard Deviation 44.6 fL (35.1-46.3); Red Blood Cell Count 5.25 M/mm3 (4.30-5.90); White Blood Cell Count 11.18 K/mm3 (4.00-11.30)
[2025-03-12 05:41] LABS: BASOPHILS ABSOLUTE MAN 0.11 K/mm3 (0.00-0.23); BASOPHILS PERCENT MAN 1 % (0-2); EOSINOPHILS PERCENT MAN 0 % (0-6); LYMPHOCYTES ABSOLUTE MAN 5.92 K/mm3 (0.84-5.20); LYMPHOCYTES PERCENT MAN 53 % (21-46); MONOCYTES ABSOLUTE MAN 0.89 K/mm3 (0.16-1.47); MONOCYTES PERCENT MAN 8 % (4-13); MYELOCYTE ABSOLUTE MAN 0.11 K/mm3 (0.00-0.00); MYELOCYTE PERCENT MAN 1 % (0-0); NEUTROPHILS ABSOLUTE MAN 4.13 K/mm3 (1.96-9.15); SEG NEUTROPHILS PERCENT MAN 37 % (41-73); TOTAL CELLS COUNTED 100
[2025-03-12 05:45] LABS: Alanine Aminotransfer (ALT/SGP 51 U/L (12-78); Albumin, Blood 3.8 g/dL (3.4-5.0); Albumin/Globulin Ratio 1.2 (0.8-1.8); Alk Phos 99 U/L (50-136); Anion Gap 10 mmol/L (3-11); Aspartate Aminotrans (AST/SGOT 26 U/L (12-37); Bilirubin, Total 0.3 mg/dL (0.1-1.0); Blood Urea Nitrogen 19 mg/dL (8-24); CO2, Blood 23 mmol/L (21-32); Calcium, Blood 8.9 mg/dL (8.5-10.1); Chloride, Blood 107 mmol/L (98-108); Ethanol (Alcohol), Blood, Med <3 mg/dL; Globulin, Blood 3.2 g/dL (2.2-4.0); Glomerular Filtration Rate 87 (60-); Glucose, Blood 107 mg/dL (70-99); Potassium, Blood 4.2 mmol/L (3.5-5.5); Sodium, Blood 136 mmol/L (136-145)
[2025-03-12 06:44] LABS: Source, Urine Voided
[2025-03-12 06:50] LABS: Bilirubin, Urine Neg (Neg); Blood, Urine Neg (Neg); Glucose Qualitative, Urine Neg (Neg); Ketones, Urine Neg (Neg); Leukocyte Esterase, Urine Neg (Neg); Nitrite, Urine Neg (Neg); Protein, Urine 1+ (Neg); Specific Gravity, Urine 1.025 (1.003-1.022); Urobilinogen, Urine NORM (Normal)
[2025-03-12 06:52] LABS: Appearance, Urine Clear (Clear); Color, Urine Yellow (P-Yellow)
[2025-03-12] MEDS ORDERED: ONDA4ODT MM (06:59)
[2025-03-12] MEDS ORDERED: Mag Hydrox/AL Hydrox/Simeth 30 ML UDC PO ONE (07:00)
[2025-03-12 07:02] LABS: U Amphetamine Screen Not Detected; U Barbituate Screen Not Detected; U Benzodiazapine Screen Not Detected; U Buprenorphine Screen Not Detected; U Cannabinoids Screen Not Detected; U Cocaine Screen Not Detected; U Methadone Screen Not Detected; U Methamphetamine Screen Not Detected; U Opiates Screen Not Detected; U Oxycodone Screen Not Detected; U Phencyclidine Screen Not Detected
[2025-03-12] MEDS ORDERED: DiphenhydrAMINE HCl 50 MG/ML 1ML Vial IV ONE ×2 (07:05→07:55)
[2025-03-12] MEDS ORDERED: Metoclopramide HCl 5MG / ML 2ML Vial IV ONE (07:05)
[2025-03-12] MEDS ORDERED: NS 1,000 ML IV SCH (07:05)
[2025-03-12] MEDS ORDERED: Ketorolac Tromethamine 30mg Vial IV ONE (07:05)
[2025-03-12 07:30] VITALS: BP 184/80
[2025-03-12] MEDS ORDERED: Hydroxyzine HCl50 MG (07:54)
[2025-04-02] MEDS ORDERED: LEVE500 PO (10:31)
[2025-04-02] MEDS ORDERED: GABA300 PO (10:32)
[2025-04-02] MEDS ORDERED: BENADRYL25 MG PO (12:53)
[2025-04-02] MEDS ORDERED: HALO5 PO (12:53)
== END 2025-03-12 08:15 | disposition home or self-care (01) ==
LOC: ER 04:48
PROVIDERS: Emergency Medicine
DX: B34.9 Viral infection, unspecified (principal); G47.00 Insomnia, unspecified; I10 Essential (primary) hypertension; Z79.899 Other long term (current) drug therapy; Z88.8 Allergy status to other drugs, medicaments and biological substances
CPT/HCPCS: 74177; 80053; 80320; 83605; 83690; 84484; 85025; 93005; 93010; 96372-59; 96374-59; 96375; 96376; 99284-25; A9270; J1200; J1630; J1885; J2470; J2765; J7030; Q9967

== ENCOUNTER → 2025-05-05 | Outpatient (CLI) | payer BC ==
[~2025-05-05] MED LIST changes: +BENADRYL25 MG PO; +HALO5 PO; +Hydroxyzine HCl50 MG; +LEVE500 PO
== END ==
LOC: LAB 14:41 → LAB SHORT 14:41
DX: G60.9 Hereditary and idiopathic neuropathy, unspecified (principal); G62.9 Polyneuropathy, unspecified; Z99.3 Dependence on wheelchair
CPT/HCPCS: 82607; 82746

== ENCOUNTER → 2025-05-22 | Outpatient (CLI) | payer BC ==
[2025-05-22 19:25] LABS: C-REACTIVE PROTEIN, EXT RANGE 0.531 mg/dL (0.000-0.300); Total Iron Binding Capacity 435.0 ug/dL (250-450)
[2025-05-22 19:33] LABS: Ferritin, Serum 28.0 ng/mL (26-388); Thyroid Stimulating Hormone 2.44 uIU/mL (0.360-4.800)
[2025-05-25 18:22] LABS: ANTI-NUCLEAR AB ANA,IGG ELISA Detected (None Detected)
[2025-05-26 09:22] LABS: ANTINUCLEAR AB (ANA),HEP-2,IGG Detected (<1:80)
[2025-05-26 21:52] LABS: JO-1 HISTIDYL-TRNA SYNTHET,IGG 1 AU/mL (0-40); SCLERODERMA (SCL-70) AB,IGG 1 AU/mL (0-40); SMITH (ENA) ANTIBODY, IGG 4 AU/mL (0-40); SSA-52 (RO52) (ENA) AB, IGG 1 AU/mL (0-40); SSA-60 (RO60) (ENA) AB, IGG 0 AU/mL (0-40); SSB (LA) (ENA) ANTIBODY, IGG 0 AU/mL (0-40)
[2025-05-28 22:58] LABS: SMITH/RNP (ENA) AB, IGG 8 Units (0-19)
[2025-05-29 19:12] LABS: DOUBLE-STRANDED DNA IGG ELISA 14 IU (0-24)
== END ==
LOC: LAB 18:47 → LAB SHORT 18:47
PROVIDERS: Nurse Practitioner Family
DX: U09.9 Post COVID-19 condition, unspecified (principal); E04.9 Nontoxic goiter, unspecified; D64.9 Anemia, unspecified
CPT/HCPCS: 82728; 83540; 83550; 84439; 84443; 84481; 85651; 86038; 86039; 86140; 86225; 86235

== ENCOUNTER 2025-09-29 09:05 | Observation (INO) | payer BC ==
[~2025-09-29] VITALS: Ht 193 cm; Wt 150.0 kg
[2025-09-29] MEDS ORDERED: PROPRANOLOL HCL60 MG PO (09:22)
[2025-09-29] MEDS ORDERED: FENTANYL1 EA10 TOP (09:24)
[2025-09-29] MEDS ORDERED: Hydroxyzine HCl50 MG PO (09:24)
[2025-09-29 09:44] LABS: BASOPHILS ABSOLUTE AUTO 0.03 K/mm3 (0.00-0.23); BASOPHILS PERCENT AUTO 0 % (0-2); EOSINOPHILS ABSOLUTE AUTO 0.25 K/mm3 (0.00-0.68); EOSINOPHILS PERCENT AUTO 3 % (0-6); Hematocrit 44.5 % (37.0-53.0); Hemoglobin 16.1 g/dL (13.5-17.5); IMMATURE GRAN ABSOLUTE AUTO 0.02 K/mm3 (0.00-0.10); IMMATURE GRAN PERCENT AUTO 0 % (0-1); LYMPHOCYTES ABSOLUTE AUTO 3.32 K/mm3 (0.84-5.20); LYMPHOCYTES PERCENT AUTO 37 % (21-46); MONOCYTES ABSOLUTE AUTO 0.72 K/mm3 (0.16-1.47); MONOCYTES PERCENT AUTO 8 % (4-13); Mean Corpuscular HGB Conc 36.2 g/dL (31.5-36.5); Mean Corpuscular Volume 87 fL (80-100); NEUTROPHILS ABSOLUTE AUTO 4.56 K/mm3 (1.96-9.15); NEUTROPHILS PERCENT AUTO 51 % (41-73); NRBC ABSOLUTE 0.00 K/mm3 (0.00-0.02); NRBC Auto 0.0 /100 WBC (0.0-0.2); Platelet Count 255 K/mm3 (150-400); RDW Coefficient Variation 12.3 % (11.7-14.2); RDW Standard Deviation 39.3 fL (35.1-46.3)
[2025-09-29 10:12] LABS: Alanine Aminotransfer (ALT/SGP 43 U/L (12-78); Albumin, Blood 4.0 g/dL (3.4-5.0); Albumin/Globulin Ratio 1.3 (0.8-1.8); Anion Gap 12 mmol/L (3-11); Aspartate Aminotrans (AST/SGOT 21 U/L (12-37); Bilirubin, Direct <0.1 mg/dL (0.0-0.3); Bilirubin, Indirect Unable to Calculate mg/dL (0.1-0.7); Bilirubin, Total 0.4 mg/dL (0.1-1.0); Blood Urea Nitrogen 14 mg/dL (8-24); CO2, Blood 22 mmol/L (21-32); Calcium, Blood 8.6 mg/dL (8.5-10.1); Chloride, Blood 108 mmol/L (98-108); Creatinine, Blood 1.10 mg/dL (0.60-1.20); Globulin, Blood 3.1 g/dL (2.2-4.0); Glucose, Blood 119 mg/dL (70-99); Potassium, Blood 4.0 mmol/L (3.5-5.5); Sodium, Blood 138 mmol/L (136-145); Total Protein, Blood 7.1 g/dL (6.4-8.2)
[2025-09-29] MEDS ORDERED: Ketorolac Tromethamine 30mg Vial IV ONE (10:50)
[2025-09-29] MEDS ORDERED: FLU VACC TS2025-26(6MOS UP)/PF 45 MCG/0.5 ML SYRINGE IM SCH (13:25)
[2025-09-29] MEDS ORDERED: Prochlorperazine Edisylate 10 mg Vial IV PRN (13:45)
[2025-09-29] MEDS ORDERED: NS 1,000 ML IV SCH (14:40)
[2025-09-29 16:15] VITALS: BP 158/92
[2025-09-29] MEDS ORDERED: FentaNYL Citrate 50 MCG/ML 2 ML Injection IV PRN (16:35)
--- NOTE | 2025-09-29 18:45 | NUR ---
END OF SHIFT SUMMARY: A&Ox4. PLEASANT AND COOPERATIVE WITH CARE. CALLS APPROPRIATELY AND IS ABLE TO ADVOCATE NEEDS EFFECTIVELY. VSS. BREATHING EVEN AND UNLABORED c RA. CONTINENT OF BOWEL AND BLADDER; LBM THIS MORNING. TOLERATING CLEAR LIQUID DIET. 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 MEDS WHOLE c FLUIDS. C/O PAIN; AWARE HE WILL BE NPO AND NO NARCOTICS AFTER MIDNIGHT. DR LEE TO BEDSIDE THIS EVENING TO CONSULT. MED REC COMPLETED. BED IN LOWEST POSITION, CALL LIGHT WITHIN REACH, ALL NEEDS MET. REPORT TO ONCOMING NURSE.
[2025-09-29] MEDS ORDERED: DICY20 PO (18:54)
[2025-09-29 19:22] VITALS: BP 146/86
[2025-09-30 03:30] VITALS: BP 132/63
[2025-09-30] MEDS ORDERED: Ketorolac Tromethamine 15mg Vial IV ONE (05:00)
[2025-09-30 05:14] VITALS: BP 131/118
--- NOTE | 2025-09-30 06:15 | NUR ---
SHIFT SUMMARY: PT AOX4, IND WITH URINAL AND BEDPAN, CALLS APPROPRAITELY AND ABLE TO MAKE NEEDS KNOWN. MADE NPO AND NARCOTICS HELD AFTER MIDNIGHT. TOLERATING WELL. COMPLAINTS OF SEVERE NAUSEA, HEADACHE AND PAIN THIS AM. ONE TIME DOSE OF TORADOL GIVEN. PT ABLE TO GET SOME SLEEP. ANXIOUS ABOUT SCAN AND POTENTIAL PROCEDURE. PLEASANT AND COOPERATIVE IN CARE. PT IN BED RESTING, BED IN LOWEST POSITION, CALL LIGTH IN REACH. CONTINUING CARE.
[2025-09-30 07:28] VITALS: BP 123/85
[2025-09-30 15:29] VITALS: BP 139/78
--- NOTE | 2025-09-30 15:48 | NUR ---
ROUNDED ON PATIENT POLST ON FILE REPORTING DNR. PATIENT HAS A PROCEDURE PENDING WILL FOLLOW UP AFTER HIS PROCEDURE TO DISCUSS CODE STATUS.
--- NOTE | 2025-09-30 18:31 | NUR ---
SHIFT SUMMARY PATIENT ALERT AND INTERACTIVE. PATIENT ABLE TO TRANSFER FROM BED TO [facility] INDEPENDENTLY. PATIENT HAS NEUROLOGICAL ISSUE POST COVID THAT CAUSES SPASTIC UNCONTROLLED MOVEMENTS THAT INCREASE WHEN CONCENTRATING ON MOVEMENT LIKE TRANSFERS. PATIENT NPO MOST OF THE DAY FOR [place] SCAN. SCAN COMPLETED AND CLEAR. PATIENT ADVANCED TO REGULAR DIET. 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 DR ROTH NOTIFIED OF PATIENT'S CONCERNS. CONTINUE TO MEDICATE FOR PAIN PER MAR.
[2025-09-30 19:57] VITALS: BP 141/73
[2025-10-01 03:36] VITALS: BP 129/73
--- NOTE | 2025-10-01 03:37 | NUR ---
SHIFT SUMMARY ADMITTED FOR RUQ PAIN AND N/V/D. FULL CODE. SURGICAL CONSULT IS DR. LEE. WE ARE ADVANCING DIET THIS SHIFT TO SEE HOW HE TOLERATES IT. HIDA SCAN PERFORMED ON DAY SHIFT - NEGATIVE. PAIN MEDICATION GIVEN THIS SHIFT, SEE EMAR. ON RA, REGULAR DIET, A&O X4. WC @ BASELINE. CAN PIVOT TRANSFER FROM BED TO . 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 USES AN OXYGEN CONDENSER AT HOME PRN. ALSO HAS A HX OF CHRONIC PAIN.
[2025-10-01 06:06] LABS: Hematocrit 41.9 % (37.0-53.0); Hemoglobin 15.1 g/dL (13.5-17.5); Mean Corpuscular HGB Conc 36.0 g/dL (31.5-36.5); Mean Corpuscular Volume 88 fL (80-100); NRBC ABSOLUTE 0.00 K/mm3 (0.00-0.02); NRBC Auto 0.0 /100 WBC (0.0-0.2); Platelet Count 199 K/mm3 (150-400); RDW Coefficient Variation 12.5 % (11.7-14.2); RDW Standard Deviation 40.0 fL (35.1-46.3)
[2025-10-01 06:40] LABS: Alanine Aminotransfer (ALT/SGP 36.0 U/L (12-78); Albumin, Blood 3.8 g/dL (3.4-5.0); Albumin/Globulin Ratio 1.4 (0.8-1.8); Anion Gap 9.0 mmol/L (3-11); Aspartate Aminotrans (AST/SGOT 17.0 U/L (12-37); Bilirubin, Total 0.4 mg/dL (0.1-1.0); Blood Urea Nitrogen 24.0 mg/dL (8-24); CO2, Blood 23.0 mmol/L (21-32); Calcium, Blood 8.4 mg/dL (8.5-10.1); Chloride, Blood 110.0 mmol/L (98-108); Creatinine, Blood 1.18 mg/dL (0.60-1.20); Globulin, Blood 2.7 g/dL (2.2-4.0); Glucose, Blood 106.0 mg/dL (70-99); Magnesium, Blood 2.2 mg/dL (1.6-2.4); Potassium, Blood 4.1 mmol/L (3.5-5.5); Sodium, Blood 138.0 mmol/L (136-145); Total Protein, Blood 6.5 g/dL (6.4-8.2)
[2025-10-01 08:22] VITALS: BP 125/77
[2025-10-01] MEDS ORDERED: OMEP20ER PO (13:45)
--- NOTE | 2025-10-01 15:00 | NUR ---
SHIFT SUMMARY AND DISCHARGE PATIENT ALERT AND INTERACTIVE. PATIENT DISCHARGING BACK TO HOME. PATIENT CONTINUES TO HAVE TREMOROUS MOVEMENTS WITH ACTIVITY WHICH IS HIS BASELINE. PATIENT IS WHEELCHAIR DEPENDENT AT HOME. PATIENT HAS CHRONIC PAIN. PATIENT MEDICATED PER DEC. FENTANYL PATCH APPLIED TODAY. DISCHARGE INSTRUCTIONS REVIEWED WITH PATIENT. PATIENT TO BE TRANSPORTED HOME BY MEDICAL TRANSPORT. IV DC'D AND BELONGINGS PACKED FOR TRANSPORT.
--- NOTE | 2025-10-01 15:24 | NUR ---
PATIENT DISCHARGED. OUT TO [facility]IA WHEEL CHAIR WITH TRANSPORT. TRANSFERS WITHONE PERSON ASSIST. IV DC'D PRIOR TO PATIENT LEAVING INTACT.
--- NOTE | 2025-10-01 15:45 | NUR ---
COMPLETED NEW POLST REFLECTING HIS CURRENT WISHES FOR FULL CODE. SIGNED BY PROVIDER, SENT TO REGISTRY, AND MEDICAL RECORDS.
== END 2025-10-01 15:18 | disposition home or self-care (01) ==
LOC: ER 09:05 → MEDS 09:06 → ENPENDDIS 10-01 12:00 → MEDS 10-01 15:18
PROVIDERS: Student in an Organized Health Care Education/Training Program; ADMIT Internal Medicine
DX: G89.29 Other chronic pain (principal); R10.11 Right upper quadrant pain; U09.9 Post COVID-19 condition, unspecified; F33.9 Major depressive disorder, recurrent, unspecified; R25.1 Tremor, unspecified; K76.0 Fatty (change of) liver, not elsewhere classified; N28.1 Cyst of kidney, acquired; K57.30 Diverticulosis of large intestine without perforation or abscess without bleeding; M16.11 Unilateral primary osteoarthritis, right hip; M87.051 Idiopathic aseptic necrosis of right femur; M54.50 Low back pain, unspecified; L40.50 Arthropathic psoriasis, unspecified; Z91.51 Personal history of suicidal behavior; Z79.890 Hormone replacement therapy; Z79.899 Other long term (current) drug therapy; Z88.8 Allergy status to other drugs, medicaments and biological substances; Z96.651 Presence of right artificial knee joint; Z99.3 Dependence on wheelchair
CPT/HCPCS: 36415; 71046; 74177; 76705; 78227; 80048; 80053; 80076; 83690; 83735; 84484; 85025; 85027; 93005; 93010; 96374; 96375; 96376; 99285-25; A9270; A9537; G0378; J0780; J1885; J3010; J7030; Q9967